=== PATIENT | female | born 1965 | race Caucasian/White ===

== ENCOUNTER 2018-03-25 06:40 | Emergency (ER) | payer MEDICAID, OTHER ==
[~2018-03-25] VITALS: Ht 175.3 cm; Wt 65.0 kg
[~2018-03-25 06:40] MED LIST: BENA25TA5 PO; OMEP20TA39 PO; PERC5TAB12 PO
[2018-03-25 06:44] VITALS: BP 148/75; PULSE 114; RESP 18; TEMP 97.7; O2SAT 100
[2018-03-25] MEDS ORDERED: MORPHINE SULFATE 4 MG/ML INJ IV PUSH ONE (07:15)
--- NOTE | 2018-03-25 07:31 | PD ---
HPI Chief Complaint: Fall Time Seen by Provider: 07:08 Travel History International Travel<30 days: No Contact w/Intl Traveler<30days: No Traveled to known affect area: No History of Present Illness HPI This is a 52-year-old female who presents to the emergency department having tripped over her dog last night landing on the floor. She reports severe right hip pain, constant, worse with movement, improved with rest. She also reports right upper arm pain, and she says she hit her head but she is not sure if she lost consciousness. She has not had any vomiting. She says she drank 4 alcoholic beverages this morning waiting for someone to come pick her head up and take her to the hospital. She drinks every day. PFSH Past Medical History Arthritis: Yes Asthma: Yes Cancer: No Cardiovascular Problems: No COPD: Yes Cerebrovascular Accident: No Diabetes: No Endocrine: No Gastrointestinal Disorders: Yes (DISEASED GALLBLADDER) Genitourinary: Yes Immune Disorder: No Neurologic: Yes Psychiatric: No Reproductive: No Respiratory: Yes Myocardial Infarction: Yes Tetanus Vaccination: < 5 Years Influenza Vaccination: No ?: Not LMP: menapause Menopausal: Yes : 2 Para: 1 Dilation and Curettage (D&C): Yes Past Surgical History Gynecologic Surgery: Yes (d and c) Oral Surgery: Yes (nose surgery) Pacemaker: No Social History Alcohol Use: Yes (daily) Tobacco Use: Yes (3/4 PPD) Substance Use: Yes (MARIJUANA ) Allergies-Medications (Allergen,Severity, Reaction): Coded Allergies: codeine (Unverified Allergy, Unknown, Itching, 03/25/18) Reported Meds & Prescriptions Reported Meds & Active Scripts Active Reported Percocet 5/325 (Oxycodone/Acetaminophen) 5 Mg/325 Mg Tab 1-2 Tab PO Q4H PRN Benadryl (Diphenhydramine HCl) 25 Mg Tab 25 Mg PO DAILY Hm Omeprazole (Omeprazole) 20 Mg Tab 40 Mg PO DAILY Review of Systems Except as stated in HPI: all other systems reviewed are Neg Physical Exam Narrative GENERAL:Well appearing, no acute distress SKIN: Focused skin assessment warm and dry. HEAD: Atraumatic. Normocephalic. EYES: Pupils equal and round. No injection or drainage. ENT: Moist mucous membranes NECK: Trachea midline. No focal cervical spine tenderness. CARDIOVASCULAR: Regular rate and rhythm. No murmur appreciated. 2+ bilateral DP pulses with normal capillary refill. 2+ right radial pulse with normal capillary refill. RESPIRATORY: Clear to auscultation. Breath sounds equal bilaterally. GASTROINTESTINAL: Abdomen soft, non-tender, nondistended. MUSCULOSKELETAL: Severe pain with flexion of the right hip. Tender to palpation over the right proximal humerus. NEUROLOGICAL: Awake and alert. No obvious cranial nerve deficits. Moving all extremities. PSYCHIATRIC: Appropriate mood and affect; insight and judgment normal. Data Data Last Documented VS Vital Signs Date Time Temp Pulse Resp B/P (MAP) Pulse Ox O2 Delivery O2 Flow Rate FiO2 03/25/18 06:44 97.7 114 18 148/75 (99) [address] Brain W/O Iv Contrast(Rout) (03/25/18 ) Complete Blood Count With Diff (03/25/18 07:15) Comprehensive Metabolic Panel (03/25/18 07:15) ^ Insert Iv (03/25/18 07:15) Hip, Uni(Ap&Lat) W Ap Pelvis (03/25/18 ) Humerus (Min 2vws) (03/25/18 ) Morphine Inj (Morphine Inj) (03/25/18 07:15) Ct Hip W/O Contrast (03/25/18 ) Alcohol (Ethanol) (03/25/18 10:02) Labs Laboratory Tests Test 03/25/18 07:30 White Blood Count 6.1 TH/MM3 Red Blood Count 3.37 MIL/MM3 Hemoglobin 10.0 GM/DL Hematocrit 29.1 % Mean Corpuscular Volume 86.4 FL Mean Corpuscular Hemoglobin 29.7 PG Mean Corpuscular Hemoglobin Concent 34.4 % Red Cell Distribution Width 16.7 % Platelet Count 219 TH/MM3 Mean Platelet Volume 8.6 FL Neutrophils (%) (Auto) 63.9 % Lymphocytes (%) (Auto) 24.5 % Monocytes (%) (Auto) 8.2 % Eosinophils (%) (Auto) 2.4 % Basophils (%) (Auto) 1.0 % Neutrophils # (Auto) 3.9 TH/MM3 Lymphocytes # (Auto) 1.5 TH/MM3 Monocytes # (Auto) 0.5 TH/MM3 Eosinophils # (Auto) 0.1 TH/MM3 Basophils # (Auto) 0.1 TH/MM3 CBC Comment DIFF FINAL Differential Comment Blood Urea Nitrogen 3 MG/DL Creatinine 0.56 MG/DL Random Glucose 92 MG/DL Total Protein 7.6 GM/DL Albumin 2.8 GM/DL Calcium Level 8.3 MG/DL Alkaline Phosphatase 205 U/L Aspartate Amino Transf (AST/SGOT) 97 U/L Alanine Aminotransferase (ALT/SGPT) 41 U/L Total Bilirubin 0.3 MG/DL Sodium Level 132 MEQ/L Potassium Level 3.7 MEQ/L Chloride Level 95 MEQ/L Carbon Dioxide Level 25.2 MEQ/L Anion Gap 12 MEQ/L Estimat Glomerular Filtration Rate 113 ML/MIN MDM Medical Decision Making Medical Screen Exam Complete: Yes Emergency Medical Condition: Yes Interpretation(s) Last 24 hours Impressions Lower Extremity CT 03/25/18 0000 Signed Impressions: Service Date/Time: Sunday, March 25, 2018 08:44 - CONCLUSION: 1. The exam demonstrates a comminuted, nondisplaced fracture extending through the base of the right greater trochanter. The femoral neck and femoral head appear intact. Darien Skinner MD Humerus X-Ray 03/25/18 0000 Signed Impressions: Service Date/Time: Sunday, March 25, 2018 07:58 - CONCLUSION: No acute fracture or joint dislocation. Gary Ventura MD Hip and Pelvis X-Ray 03/25/18 0000 Signed Impressions: Service Date/Time: Sunday, March 25, 2018 07:56 - CONCLUSION: No acute bony fracture or joint dislocation. Gary Ventura MD Head CT 03/25/18 0000 Signed Impressions: Service Date/Time: Sunday, March 25, 2018 07:37 - CONCLUSION: Normal examination for a patient of this age. Gary Ventura MD Differential Diagnosis Hip fracture, hip contusion, hip sprain Narrative Course This is a 52-year-old female who presents to the emergency department having fallen earlier this morning. She is an alcoholic. X-ray was negative for acute fracture but CT demonstrates a fracture through the greater trochanter. Fracture is nonoperative. Case was discussed with Dr. Handy who recommended weightbearing and limited abduction. Pt. will be discharged and can follow up with orthopedics as an outpatient. Diagnosis Primary Impression: Greater trochanter fracture Qualified Codes: S72.114A - Nondisplaced fracture of greater trochanter of right femur, initial encounter for closed fracture Referrals: Claribel Handy MD Patient Instructions: General Instructions Additional Instructions: Weightbear as tolerated, limit turning your leg out to the side. Follow up with an orthopedic surgeon as soon as possible. Med/Other Pt SpecificInfo: Prescription(s) given Scripts Hydrocodone-Acetaminophen (Hydrocodone-Acetaminophen) 5-325 mg Tab 1 TAB PO Q6H Y for PAIN, #12 TAB 0 Refills Prov: Belle Arthur MD 03/25/18 Disposition: 01 DISCHARGE HOME Condition: Stable Belle Arthur MD March 25, 2018 07:31
[2018-03-25 07:42] LABS: AUTOMATED NEUTROPHIL # 3.9 TH/MM3 (1.8-7.7); BASOPHIL # 0.1 TH/MM3 (0-0.2); EOSINOPHIL # 0.1 TH/MM3 (0-0.4); EOSINOPHIL % 2.4 % (0.0-4.0); HEMATOCRIT 29.1 % (35.0-46.0); LYMPH % 24.5 % (9.0-44.0); LYMPHOCYTE # 1.5 TH/MM3 (1.0-4.8); MEAN CELL VOLUME 86.4 FL (80.0-100.0); MEAN CORPUSCULAR HEMOGLOBIN 29.7 PG (27.0-34.0); MEAN CORPUSCULAR HGB CONC 34.4 % (32.0-36.0); MEAN PLATELET VOLUME 8.6 FL (7.0-11.0); MONO % 8.2 % (0.0-8.0); MONOCYTE # 0.5 TH/MM3 (0-0.9); NEUT % 63.9 % (16.0-70.0); PLATELET COUNT 219 TH/MM3 (150-450); RED BLOOD COUNT 3.37 MIL/MM3 (4.00-5.30); RED CELL DISTRIBUTION WIDTH 16.7 % (11.6-17.2); WHITE BLOOD COUNT 6.1 TH/MM3 (4.0-11.0)
--- NOTE | 2018-03-25 07:50 | RADRPT ---
EXAM DATE/TIME: 03/25/2018 07:37 [facility] COMPARISON: No previous studies available for comparison. INDICATIONS : Trauma, fall RADIATION DOSE: 56.35 CTDIvol (mGy) MEDICAL HISTORY : Cardiovascular disease. Chronic obstructive pulmonary disease. SURGICAL HISTORY : None. ENCOUNTER: Initial ACUITY: 1 day PAIN SCALE: 7/10 LOCATION: cranial TECHNIQUE: Multiple contiguous axial images were obtained of the head. Using automated exposure control and adj ustment of the mA and/or kV according to patient size, radiation dose was kept as low as reasonably a chievable to obtain optimal diagnostic quality images. DICOM format image data is available electro nically for review and comparison. FINDINGS: CEREBRUM: The ventricles are normal for age. No evidence of midline shift, mass lesion, hemorrhage or acute in farction. No extra-axial fluid collections are seen. POSTERIOR FOSSA: The cerebellum and brainstem are intact. The 4th ventricle is midline. The cerebellopontine angle i s unremarkable. EXTRACRANIAL: The visualized portion of the orbits is intact. SKULL: The calvaria is intact. No evidence of skull fracture. CONCLUSION: Normal examination for a patient of this age. Gary Ventura MD on March 25, 2018 at 7:47 Board Certified Radiologist. This report was verified electronically.
[2018-03-25 08:02] LABS: ALBUMIN 2.8 GM/DL (3.4-5.0); AST (GOT) 97 U/L (15-37); BICARBONATE 25.2 MEQ/L (21.0-32.0); BLOOD UREA NITROGEN 3 MG/DL (7-18); CALCIUM 8.3 MG/DL (8.5-10.1); CHLORIDE 95 MEQ/L (98-107); CREATININE 0.56 MG/DL (0.50-1.00); GLOMERULAR FILTRATION RATE 113 ML/MIN (>89); GLUCOSE,RANDOM 92 MG/DL (74-106); SODIUM (NA) 132 MEQ/L (136-145)
[2018-03-25 08:03] LABS: ALT (GPT) 41 U/L (10-53)
[2018-03-25 08:05] LABS: ALKALINE PHOSPHATASE 205 U/L (45-117); TOTAL BILIRUBIN ADULT 0.3 MG/DL (0.2-1.0); TOTAL PROTEIN 7.6 GM/DL (6.4-8.2)
--- NOTE | 2018-03-25 08:12 | RADRPT ---
EXAM DATE/TIME: 03/25/2018 07:56 [facility] COMPARISON: No previous studies available for comparison. INDICATIONS : Right hip pain after tripping over a dog this morning. MEDICAL HISTORY : None. SURGICAL HISTORY : None. ENCOUNTER: Initial ACUITY: 1 day PAIN SCORE: 7/10 LOCATION: Right hip. FINDINGS: Examination of the right hip was performed with AP Pelvis. The primary and secondary trabecular joseph shira of the femoral neck is intact. The hip joint is of normal width without significant sclerosis or bony hypertrophy. The acetabulum is grossly intact. There is good alignment the SI joints and pubic symphysis. CONCLUSION: No acute bony fracture or joint dislocation. Gary Ventura MD on March 25, 2018 at 8:08 Board Certified Radiologist. This report was verified electronically.
--- NOTE | 2018-03-25 08:13 | RADRPT ---
EXAM DATE/TIME: 03/25/2018 07:58 [facility] COMPARISON: No previous studies available for comparison. INDICATIONS : Right upper arm pain after tripping over a dog this morning. MEDICAL HISTORY : None. SURGICAL HISTORY : None. ENCOUNTER: Initial ACUITY: 1 day PAIN SCORE: 7/10 LOCATION: Right humerus. FINDINGS: Two view examination of the right humerus demonstrates no evidence of fracture or dislocation. Bony mineralization is normal. The soft tissue structures are intact. There is evidence of an old nonunio n fracture involving the distal clavicle. There is good alignment at the a.c. joint. CONCLUSION: No acute fracture or joint dislocation. Gary Ventura MD on March 25, 2018 at 8:10 Board Certified Radiologist. This report was verified electronically.
--- NOTE | 2018-03-25 09:49 | RADRPT ---
EXAM DATE/TIME: 03/25/2018 08:44 [facility] COMPARISON: CT BRAIN W/O CONTRAST, March 25, 2018, 7:37. INDICATIONS : Patient fell, right hip pain RADIATION DOSE: 10.50 CTDIvol (mGy) MEDICAL HISTORY : Chronic obstructive pulmonary disease. SURGICAL HISTORY : None. ENCOUNTER: Initial ACUITY: 1 day PAIN SCALE: 7/10 LOCATION: Right hip TECHNIQUE: Volumetric scanning of the hip was performed. Using automated exposure control and adjustment of the mA and/or kV according to patient size, radiation dose was kept as low as reasonably achievable to o btain optimal diagnostic quality images. DICOM format image data is available electronically for rev iew and comparison. FINDINGS: Thin section imaging through the right hip is provided. This demonstrates a comminuted, nondisplaced fracture which extends through the greater trochanter. The femoral head appears well situated within the acetabular fossa. The femoral neck is intact. The remainder the visualized bony structures of the pelvis are intact. There is no free fluid within the pelvis. There is atherosclerotic plaquing and iliac arteries. Reproducti organs are intact. No il iac or internal adenopathy is seen. CONCLUSION: 1. The exam demonstrates a comminuted, nondisplaced fracture extending through the base of the right greater trochanter. The femoral neck and femoral head appear intact. Darien Skinner MD on March 25, 2018 at 9:39 Board Certified Radiologist. This report was verified electronically.
[2018-03-25] MEDS ORDERED: HYDR-3516 PO (10:44)
[2018-03-25 10:50] VITALS: BP 136/78; PULSE 101; RESP 19; TEMP 97.3; O2SAT 98
--- NOTE | 2018-03-26 09:37 | EKG ---
Date Performed: 03/25/2018 Time Performed: 10:32:24 PTAGE: 52 years EKG: Sinus rhythm POSSIBLE RIGHT VENTRICULAR CONDUCTION DELAY BORDERLINE ECG Since the PREVIOUS TRACING , no significant change noted PREVIOUS TRACING DOCTOR: La Rodriguez Interpretating Date/Time 03/26/2018 09:37:07
== END 2018-03-25 11:07 | disposition home or self-care (01) ==
LOC: NEPC 06:40
DX: S72.114A Nondisplaced fracture of greater trochanter of right femur, initial encounter for closed fracture (principal); F12.90 Cannabis use, unspecified, uncomplicated; F17.200 Nicotine dependence, unspecified, uncomplicated; I25.2 Old myocardial infarction; W01.0XXA Fall on same level from slipping, tripping and stumbling without subsequent striking against object, initial encounter; Z79.899 Other long term (current) drug therapy
CPT/HCPCS: 70450; 73060; 73502; 73700; 80053; 80307; 85025; 93005; 96374; 99285; E0113; J2270

== ENCOUNTER 2018-08-15 07:12 | Inpatient (IN) ==
--- NOTE | 2018-08-15 07:41 | ED ---
HPI General Chief Complaint: Fall Stated Complaint: fall/leg injury(+etoh) Time Seen by Provider: 08/15/18 07:31 Source: patient Mode of arrival: ambulatory Limitations: altered mental status History of Present Illness HPI Narrative: Patient intoxicated and comes in due to slip and fall and injury to the left foreleg. Patient admits to increased ethanol intoxication. No other complaints. MD complaint: Reports fall Related Data Home Medications Medication Instructions Recorded Confirmed omeprazole magnesium [Prilosec OTC] 0 mg PO DAILY 08/15/18 08/15/18 Allergies Allergy/AdvReac Type Severity Reaction Status Date / Time codeine Allergy Unknown Itching Unverified 08/15/18 07:48 Review of Systems ROS: all other systems reviewed are negative [facility] Family History Family History Other Family history of acute myocardial infarction Social History Social History Substance History: Active Abuse Second Hand Smoke Exposure: Yes Smoking Status: Current every day smoker Tobacco Type: Cigarettes How Often Do You Have a Drink Containing Alcohol: 4 or more times a week Recent Travel in [facility] within the Last 8 Weeks: No Recent Out of Country Travel within the Last 8 Weeks: No Exam Narrative Exam Narrative: GENERAL: Alert and oriented Eyes: PERRLA EOMI conjunctiva normal ENT: Moist mucosa SKIN: Focused skin assessment warm/dry. CARDIOVASCULAR: Regular rate and rhythm. No murmur appreciated. RESPIRATORY: No accessory muscle use. Clear to auscultation. Breath sounds equal bilaterally. MUSCULOSKELETAL: No obvious deformities. No clubbing. No cyanosis. No edema. Hematoma with pain on range of motion anterior lateral foreleg overlying proximal fibula. NEUROLOGICAL: Awake and alert. No obvious cranial nerve deficits. Motor grossly within normal limits. Slurring of speech PSYCHIATRIC: Appropriate mood and affect; insight and judgment normal. Course Reevaluation(s) Reevaluation #1: X-rays show comminuted fracture proximal tibia with displacement. Additionally hemoglobin shows significant anemia in need of transfusion. Patient has used aspirin daily and also has dyspepsia intermittently. Black stools for the last 3-4 weeks. Time: 08:36 Initial Documented Vital Signs Temperature 98.2 F 08/15/18 07:31 Pulse Rate 103 H 08/15/18 07:31 Blood Pressure 91/67 L 08/15/18 07:31 Pulse Oximetry 97 08/15/18 07:31 Last Documented Vital Signs Temperature 98.2 F 08/15/18 16:00 Pulse Rate 100 H 08/15/18 18:00 Respiratory Rate 18 08/15/18 18:00 Blood Pressure 164/88 H 08/15/18 18:00 Pulse Oximetry 97 08/15/18 18:00 Medical Decision Making MDM Narrative Medical Screen Exam Complete: Yes Emergency Medical Condition: Yes Lab Data Result diagrams: 08/15/18 08:10 08/15/18 08:10 Lab Results 08/15/18 08/15/18 08/15/18 Range/Units 08:10 08:10 08:10 CBC w Diff Slide review pending WBC 8.9 (4.0-11.0) th/mm3 RBC 2.49 L (4.00-5.30) mil/mm3 Hgb 5.8 L* (11.6-15.3) gm/dL Hct 18.0 L* (35.0-46.0) % MCV 72.2 L (80.0-100.0) fL MCH 23.3 L (27.0-34.0) pg MCHC 32.3 (32.0-36.0) % RDW 17.9 H (11.6-17.2) % Plt Count 231 (150-450) th/mm3 MPV 8.7 (7.0-11.0) fL Neut % (Auto) 79.1 H (16.0-70.0) % Lymph % (Auto) 12.6 (9.0-44.0) % Beckham % (Auto) 4.2 (0.0-8.0) % Eos % (Auto) 3.6 (0.0-4.0) % Baso % (Auto) 0.5 (0.0-2.0) % Neut # (Auto) 7.1 (1.8-7.7) th/mm3 Lymph # (Auto) 1.1 (1.0-4.8) th/mm3 Beckham # (Auto) 0.4 (0.0-0.9) th/mm3 Eos # (Auto) 0.3 (0.0-0.4) th/mm3 Baso # (Auto) 0.0 (0.0-0.2) th/mm3 WBC Differential . Diff Scan Auto diff confirmed Differential Comment . Target Cells 1+ H (None) PT (9.8-11.6) sec INR Ratio APTT (24.3-30.1) sec Sodium 131 L (136-145) meq/L Potassium 3.6 (3.5-5.1) meq/L Chloride 100 (98-107) meq/L Carbon Dioxide 16.9 L (21.0-32.0) meq/L Anion Gap 14 (5-15) meq/L BUN 5 L (7-18) mg/dL Creatinine 0.73 (0.50-1.00) mg/dL Estimated GFR 83 L (>89) mL/min Random Glucose 104 (74-106) mg/dL Calcium 7.9 L (8.5-10.1) mg/dL Iron 13 L (50-170) mcg/dL TIBC 543 H (250-450) mcg/dL % Saturation 2.4 L (20-50) % Ferritin 5 L (8-252) ng/mL Total Bilirubin 0.2 (0.2-1.0) mg/dL AST 62 H (15-37) U/L ALT 20 (10-53) U/L Alkaline Phosphatase 137 H (45-117) U/L Total Protein 8.0 (6.4-8.2) g/dL Albumin 3.0 L (3.4-5.0) g/dL Lipase 217 (73-393) U/L Serum Alcohol 277 H (0-5) mg/dL Blood Type Antibody Screen MTS Gel Crossmatch Bld Prod Order Comment 08/15/18 08/15/18 Range/Units 09:04 09:04 CBC w Diff WBC (4.0-11.0) th/mm3 RBC (4.00-5.30) mil/mm3 Hgb (11.6-15.3) gm/dL Hct (35.0-46.0) % MCV (80.0-100.0) fL MCH (27.0-34.0) pg MCHC (32.0-36.0) % RDW (11.6-17.2) % Plt Count (150-450) th/mm3 MPV (7.0-11.0) fL Neut % (Auto) (16.0-70.0) % Lymph % (Auto) (9.0-44.0) % Beckham % (Auto) (0.0-8.0) % Eos % (Auto) (0.0-4.0) % Baso % (Auto) (0.0-2.0) % Neut # (Auto) (1.8-7.7) th/mm3 Lymph # (Auto) (1.0-4.8) th/mm3 Beckham # (Auto) (0.0-0.9) th/mm3 Eos # (Auto) (0.0-0.4) th/mm3 Baso # (Auto) (0.0-0.2) th/mm3 WBC Differential Diff Scan Differential Comment Target Cells (None) PT 11.4 (9.8-11.6) sec INR 1.1 Ratio APTT 27.1 (24.3-30.1) sec Sodium (136-145) meq/L Potassium (3.5-5.1) meq/L Chloride (98-107) meq/L Carbon Dioxide (21.0-32.0) meq/L Anion Gap (5-15) meq/L BUN (7-18) mg/dL Creatinine (0.50-1.00) mg/dL Estimated GFR (>89) mL/min Random Glucose (74-106) mg/dL Calcium (8.5-10.1) mg/dL Iron (50-170) mcg/dL TIBC (250-450) mcg/dL % Saturation (20-50) % Ferritin (8-252) ng/mL Total Bilirubin (0.2-1.0) mg/dL AST (15-37) U/L ALT (10-53) U/L Alkaline Phosphatase (45-117) U/L Total Protein (6.4-8.2) g/dL Albumin (3.4-5.0) g/dL Lipase (73-393) U/L Serum Alcohol (0-5) mg/dL Blood Type O Positive Antibody Screen Negative MTS Gel Crossmatch See Detail Bld Prod Order Comment Imaging Data Radiologist's impression: Tibia/Fibula X-Ray 08/15/18 07:41 CONCLUSION: 1. Acute displaced comminuted fractures involving left proximal tibia which extends to the articular surface as well as the proximal fibula. Fat-fluid level within the suprapatellar bursa. 2. Diffuse osteoporosis of the left tibia, fibula and visualized portion of the distal femur. Chest X-Ray 08/15/18 08:38 CONCLUSION: Negative examination. Lower Extremity CT 08/15/18 12:11 CONCLUSION: 1. Acute comminuted mildly displaced fractures involving the proximal tibia and fibula are noted. The proximal tibial fracture extends to the articular surface in the region of the intercondylar eminence. 2. Moderate-sized suprapatellar knee joint effusion which contains a fat-fluid level. 3. Diffuse osteoporosis involving the bones of the lower leg is noted. Knee CT 08/15/18 12:16 CONCLUSION: 1. Evidence of an acute displaced comminuted fracture involving the left proximal tibial shaft which extends superiorly into the region of the intercondylar tubercle and involves the articular surface. There is also an acute comminuted fracture involving the proximal fibula. 2. Moderate-sized suprapatellar effusion demonstrates a fat-fluid level. 3. Underlying diffuse osteoporosis involving the distal femur, patella, proximal tibia and proximal fibula is noted. Discharge Plan Discharge Disposition Patient Disposition: 02 Transfer To [facility] Physicians Team ED Provider: Mihir Lamb Primary Care Provider: Primary Care Esperanza Kiran Attending Provider: Curtis Jamison Other Providers: Naima Bernard Christophe J Status ED Status: Admitted Patient
[2018-08-15] MEDS ORDERED: Ketorolac Inj 30 MG/ML (IVP) Vial IV.PUSH ONE (07:45)
--- NOTE | 2018-08-15 08:15 | XR ---
EXAM DATE: 08/15/2018 7:41 AM EDT AGE/SEX: 52 years / Female INDICATIONS: Left proximal tibia pain, swelling, and bruising after twisting leg. CLINICAL DATA: This is the patient's initial encounter. Patient reports that signs and symptoms have been present for 1 day and indicates a pain score of 10/10. MEDICAL/SURGICAL HISTORY: None. None. COMPARISON: No prior exams available for comparison. FINDINGS: There is an acute displaced comminuted fracture involving the left proximal tibia which extends to th e articular surface. There is also an acute comminuted displaced fracture involving the left proximal fibula. There is a fat-fluid level within the suprapatellar bursa. Diffuse osteoporosis of the left tibia, fibula and visualized portion of the distal femur is noted. CONCLUSION: 1. Acute displaced comminuted fractures involving left proximal tibia which extends to the articular surface as well as the proximal fibula. Fat-fluid level within the suprapatellar bursa. 2. Diffuse osteoporosis of the left tibia, fibula and visualized portion of the distal femur. Electronically signed by: Emory Guerrero MD 08/15/2018 8:14 AM EDT
[2018-08-15 08:26] LABS: Baso % (Auto) 0.5 % (0.0-2.0); Eos # (Auto) 0.3 th/mm3 (0.0-0.4); Eos % (Auto) 3.6 % (0.0-4.0); Lymph # (Auto) 1.1 th/mm3 (1.0-4.8); Lymph % (Auto) 12.6 % (9.0-44.0); Mean Corpuscular HGB Conc 32.3 % (32.0-36.0); Mean Corpuscular Hemoglobin 23.3 pg (27.0-34.0); Mean Corpuscular Volume 72.2 fL (80.0-100.0); Mean Platelet Volume 8.7 fL (7.0-11.0); Mono # (Auto) 0.4 th/mm3 (0.0-0.9); Mono % (Auto) 4.2 % (0.0-8.0); Neut # (Auto) 7.1 th/mm3 (1.8-7.7); Neut % (Auto) 79.1 % (16.0-70.0); Platelet Count 231 th/mm3 (150-450); Red Blood Count 2.49 mil/mm3 (4.00-5.30); Red Cell Distribution Width 17.9 % (11.6-17.2); White Blood Count 8.9 th/mm3 (4.0-11.0)
[2018-08-15 08:28] LABS: Hemoglobin 5.8 gm/dL (11.6-15.3)
[2018-08-15 08:29] LABS: Chloride 100 meq/L (98-107); Potassium 3.6 meq/L (3.5-5.1); Sodium 131 meq/L (136-145)
[2018-08-15 08:32] LABS: Calcium 7.9 mg/dL (8.5-10.1)
[2018-08-15 08:33] LABS: Anion Gap 14 meq/L (5-15); Blood Urea Nitrogen 5 mg/dL (7-18); Carbon Dioxide 16.9 meq/L (21.0-32.0); Glucose,Random 104 mg/dL (74-106)
[2018-08-15 08:36] LABS: Alanine Aminotransferase 20 U/L (10-53); Aspartate Aminotransferase 62 U/L (15-37); Glomerular Filtration Rate 83 mL/min (>89)
[2018-08-15 08:39] LABS: Alkaline Phosphatase 137 U/L (45-117)
[2018-08-15 08:41] LABS: Alcohol 277 mg/dL (0-5)
[2018-08-15 09:04] LABS: Target Cells 1+
--- NOTE | 2018-08-15 09:09 | XR ---
EXAM DATE: 08/15/2018 8:38 AM EDT AGE/SEX: 52 years / Female INDICATIONS: Shortness of breath. CLINICAL DATA: This is the patient's initial encounter. Patient reports that signs and symptoms have been present for 1 day and indicates a pain score of 0/10. MEDICAL/SURGICAL HISTORY: None. None. COMPARISON: No prior exams available for comparison. FINDINGS: A single AP view of the chest demonstrates the lungs to be symmetrically aerated without evidence of mass, infiltrate or effusion. The cardiomediastinal contours are unremarkable. Osseous structures a re intact. CONCLUSION: Negative examination. Electronically signed by: Emory Guerrero MD 08/15/2018 9:08 AM EDT
[2018-08-15] MEDS: Sod Chloride 0.9% Inj 1,000 ML IV.CONT SCH ×2 (09:16→22:59)
[2018-08-15 09:29] LABS: Activated Partial Thrombo Time 27.1 sec (24.3-30.1); INR 1.1 Ratio; Prothrombin Time 11.4 sec (9.8-11.6)
[2018-08-15] MEDS ORDERED: Haloperidol Inj 5 MG/ML Ampul IV.PUSH PRN ×2 (09:56→10:13)
[2018-08-15] MEDS ORDERED: LORazepam 1 MG Tablet PO PRN (09:56)
[2018-08-15] MEDS ORDERED: Acetaminophen 325 MG Tablet PO PRN ×2 (10:01→11:06)
[2018-08-15] MEDS ORDERED: Bisacodyl 10 MG Supp RECTAL PRN (10:01)
[2018-08-15] MEDS: Pantoprazole Inj 40 MG Vial IV.PUSH SCH (10:38)
[2018-08-15] MEDS ORDERED: Naloxone Inj 0.4 MG/ML Vial IV.PUSH PRN (11:06)
[2018-08-15] MEDS ORDERED: HYDROmorphone PF Inj 1 MG/ML Ampul IV.PUSH PRN ×3 (11:06)
--- NOTE | 2018-08-15 11:21 | P.HP ---
History of Present Illness Primary Care Physician: No Primary Care Physician Chief Complaint: Left leg pain History of Present Illness: This is a 52-year-old female with a history of alcohol abuse, asthma and chronic right hip pain. Patient presents to the emergency department because of acute left leg pain. States she was standing using her cane when she lost her balance and fell. She immediately noticed deformity of her left leg and complained of severe pain "hurts like hell" especially with movement. Tib-fib x -ray independently reviewed by me shows acute displaced comminuted fracture involving the left proximal tibia. Per ER physician, orthopedic surgery recommends transfer to [facility] and obtain lower extremity CT. Patient also has a hematoma in the anterior lateral foreleg. Patient states he cannot tolerate pain medications including Lortab. Morphine gives her dizziness. She denies any symptoms immediately prior to the fall however she has been having intermittent dizziness for the past several weeks. She also noted dark stools and dyspepsia with Prilosec. She also has chronic headaches for which she takes aspirin. She has been evaluated twice in the past including head CT. EKG tracing independently reviewed by me showing sinus tachycardia with poor R wave progression. Chest x-ray image with no acute cardiopulmonary disease. All other systems reviewed negative Review of Systems All other systems reviewed negative except as stated in HPI PMFSH - History History Provided By: Patient - Medical History Medical History: Medical History (Last Reviewed 08/15/18 @ 11:15 by Curtis Jamison MD) Asthma ETOH abuse FH: cholecystectomy FH: heart attack Head trauma Hip fracture - Family History Family History: Family History (Last Updated 08/15/18 @ 11:16 by Curtis Jamison MD) Other Family history of acute myocardial infarction - Tobacco History Second Hand Smoke Exposure: Yes Tobacco Use In Past 30 Days: Yes Smoking Status: Current every day smoker Tobacco Type: Cigarettes - Alcohol History How Often Do You Have a Drink Containing Alcohol: 4 or more times a week - Substance Use History Substance History: Active Abuse - Substance Use Type Marijuana Status: Active Frequency: occ Alcohol Status: Active Frequency: daily - Travel History Recent Travel in the [facility] Within the Last 8 Weeks: No Recent Travel Out of the Country Within the Last 8 Weeks: No - Immunization History Tetanus Immunization: <5 Years Hx Influenza Vaccine This Season: No Medications and Allergies Active Medications: Active Medications Acetaminophen (Tylenol) 650 mg PO Q4H PRN PRN Reason: Temp > 100.4 Acetaminophen (Tylenol) 650 mg PO Q6HR PRN PRN Reason: PAIN SCALE 1 TO 2 Hydrocodone Bitart/Acetaminophen ([place] 10/325) 1 tab PO Q4H PRN PRN Reason: PAIN SCALE 6 TO 10 Hydrocodone Bitart/Acetaminophen ([place] 5/325) 1 tab PO Q4H PRN PRN Reason: PAIN SCALE 3 TO 5 Al Hydroxide/Mg Hydroxide (Milk Of Magnesia Liq) 30 ml PO Q12H PRN PRN Reason: Mild Constipation Bisacodyl (Dulcolax Supp) 10 mg RECTAL DAILY PRN PRN Reason: SEVERE CONSITIPATION Flumazenil (Romazecon Inj) 0.2 mg IV.PUSH Q1M PRN PRN Reason: OVERSEDATION Folic Acid (Folic Acid) 1 mg PO DAILY [facility] Stop: 08/21/18 08:59 Haloperidol Lactate (Haldol Inj) 1 mg IV.PUSH Q15M PRN PRN Reason: for severe agitation Hydromorphone HCl (Dilaudid Pf Inj) 0.5 mg IV.PUSH Q3H PRN PRN Reason: PAIN 3-5; IF UABLE TO TAKE PO Hydromorphone HCl (Dilaudid Pf Inj) 1 mg IV.PUSH Q3H PRN PRN Reason: BREAKTHROUGH PAIN Hydromorphone HCl (Dilaudid Pf Inj) 1 mg IV.PUSH Q3H PRN PRN Reason: PAIN 6-10;IF UNABLE TO TAKE PO Sodium Chloride (Ns Inj) 1,000 mls @ 125 mls/hr IV.CONT .Q8H [facility] Last Admin: 08/15/18 09:16 Dose: 125 mls/hr Lactulose (Lactulose Liq) 30 ml PO DAILY PRN PRN Reason: SEVERE CONSITIPATION Lorazepam (Ativan) 1 mg PO Q4H PRN PRN Reason: for CIWA 8-10 Lorazepam (Ativan) 2 mg PO Q2H PRN PRN Reason: for CIWA 11-14 Lorazepam (Ativan Inj) 2 mg IV.PUSH Q2H PRN PRN Reason: for CIWA 11-14 Lorazepam (Ativan Inj) 2 mg IV.PUSH Q1H PRN PRN Reason: for CIWA 15-20 Lorazepam (Ativan Inj) 2 mg IV.PUSH Q15M PRN PRN Reason: for CIWA > 20 Lorazepam (Ativan Inj) 1 mg IV.PUSH Q4H PRN PRN Reason: for CIWA 8-10 Multivitamins/Minerals (Theragran-M) 1 tab PO DAILY [facility] Stop: 08/21/18 08:59 Naloxone HCl (Narcan Inj) 0.4 mg IV.PUSH UNSCH PRN PRN Reason: SEE LABEL COMMENTS Ondansetron HCl (Zofran Inj) 4 mg IV.PUSH Q6H PRN PRN Reason: NAUSEA OR VOMITING Pantoprazole Sodium (Protonix Inj) 40 mg IV.PUSH Q24H [facility] Last Admin: 08/15/18 10:38 Dose: 40 mg Senna/Docusate Sodium (Sophie-Colace) 1 tab PO BID [facility] Sennosides (Senokot) 17.2 mg PO Q12H PRN PRN Reason: Moderate Constipation Sodium Chloride (Ns Flush) 2 ml IV.FLUSH PRN PRN PRN Reason: FLUSH AFTER USING IV ACCESS Thiamine HCl (Vitamin B1) 100 mg PO DAILY [facility] Allergies Allergy/AdvReac Type Severity Reaction Status Date / Time codeine Allergy Unknown Itching Unverified 08/15/18 07:48 Home Medications Medication Instructions Recorded Confirmed Type omeprazole magnesium [Prilosec OTC] 0 mg PO DAILY 08/15/18 08/15/18 History Exam Vital signs: Vital Signs 08/15/18 07:31 08/15/18 08:18 08/15/18 08:39 Temperature 98.2 F Pulse Rate 103 H 102 H 104 H Respiratory Rate 18 Blood Pressure 91/67 L 135/80 Pulse Oximetry 97 97 100 08/15/18 09:19 08/15/18 09:20 08/15/18 10:39 Temperature Pulse Rate 105 H 86 Respiratory Rate 16 16 18 Blood Pressure 136/76 138/75 Pulse Oximetry 100 97 Intake & Output 08/14/18 08/15/18 08/15/18 18:59 06:59 18:59 Weight 66 kg Narrative: GENERAL: Well-developed, well-nourished in no distress SKIN: Warm and dry. Facial hemangioma HEAD: Atraumatic. Normocephalic. EYES: Pupils equal and round. No scleral icterus. No injection or drainage. ENT: No nasal bleeding or discharge. Mucous membranes pink and moist. NECK: Trachea midline. No JVD. CARDIOVASCULAR: Regular rate and rhythm. RESPIRATORY: No accessory muscle use. Clear to auscultation. Breath sounds equal bilaterally. GASTROINTESTINAL: Abdomen soft, non-tender, nondistended. MUSCULOSKELETAL: Extremities without clubbing, cyanosis, or edema. Left lower extremity in a splint. Positive pedal pulses. Per ER physician, patient has a hematoma in the anterolateral foreleg NEUROLOGICAL: Awake and alert. No obvious cranial nerve deficits. Motor grossly within normal limits. Five out of 5 muscle strength in the arms and legs. Normal speech. PSYCHIATRIC: Appropriate mood and affect; insight and judgment normal. Results - Labs CBC & Chem 7: 08/15/18 08:10 08/15/18 08:10 Labs: Laboratory Results - last 24 hr 08/15/18 08/15/18 08/15/18 08:10 08:10 09:04 CBC w Diff Slide review pending WBC 8.9 RBC 2.49 L Hgb 5.8 L* Hct 18.0 L* MCV 72.2 L MCH 23.3 L MCHC 32.3 RDW 17.9 H Plt Count 231 MPV 8.7 Neut % (Auto) 79.1 H Lymph % (Auto) 12.6 [place] % (Auto) 4.2 Eos % (Auto) 3.6 Baso % (Auto) 0.5 Neut # (Auto) 7.1 Lymph # (Auto) 1.1 [place] # (Auto) 0.4 Eos # (Auto) 0.3 Baso # (Auto) 0.0 WBC Differential . Diff Scan Auto diff confirmed Differential Comment . Target Cells 1+ H PT INR APTT Sodium 131 L Potassium 3.6 Chloride 100 Carbon Dioxide 16.9 L Anion Gap 14 BUN 5 L Creatinine 0.73 Estimated GFR 83 L Random Glucose 104 Calcium 7.9 L Total Bilirubin 0.2 AST 62 H ALT 20 Alkaline Phosphatase 137 H Total Protein 8.0 Albumin 3.0 L Serum Alcohol 277 H Blood Type O Positive Antibody Screen Negative MTS Gel Crossmatch See Detail Bld Prod Order Comment 08/15/18 09:04 CBC w Diff WBC RBC Hgb Hct MCV MCH MCHC RDW Plt Count MPV Neut % (Auto) Lymph % (Auto) [place] % (Auto) Eos % (Auto) Baso % (Auto) Neut # (Auto) Lymph # (Auto) [place] # (Auto) Eos # (Auto) Baso # (Auto) WBC Differential Diff Scan Differential Comment Target Cells PT 11.4 INR 1.1 APTT 27.1 Sodium Potassium Chloride Carbon Dioxide Anion Gap BUN Creatinine Estimated GFR Random Glucose Calcium Total Bilirubin AST ALT Alkaline Phosphatase Total Protein Albumin Serum Alcohol Blood Type Antibody Screen MTS Gel Crossmatch Bld Prod Order Comment - Imaging Impressions Tibia/Fibula X-Ray 08/15/18 07:41 CONCLUSION: 1. Acute displaced comminuted fractures involving left proximal tibia which extends to the articular surface as well as the proximal fibula. Fat-fluid level within the suprapatellar bursa. 2. Diffuse osteoporosis of the left tibia, fibula and visualized portion of the distal femur. Chest X-Ray 08/15/18 08:38 CONCLUSION: Negative examination. Caprini VTE Risk Assessment Caprini VTE Risk Assessment: Moderate/High Risk (score >= 2) Caprini Risk Assessment Model: Point Value = 1 Point Value = 2 Point Value = 3 Point Value = 5 Age 41-60 Minor surgery BMI > 25 kg/m2 Swollen legs Varicose veins or History of unexplained or recurrent spontaneous Oral contraceptives or hormone replacement Sepsis (< 1 month) Serious lung disease, including pneumonia (< 1 month) Abnormal pulmonary function Acute myocardial infarction Congestive heart failure (< 1 month) History of inflammatory bowel disease Medical patient at bed rest Age 61-74 Arthroscopic surgery Major open surgery (> 45 min) Laparoscopic surgery (> 45 min) Malignancy Confined to bed (> 72 hours) Immobilizing plaster cast Central venous access Age >= 75 History of VTE Family history of VTE Factor V Leiden Prothrombin [id number] Lupus anticoagulant Anticardiolipin antibodies Elevated serum homocysteine Heparin-induced thrombocytopenia Other congenital or acquired thrombophilia Stroke (< 1 month) Elective arthroplasty Hip, pelvis, or leg fracture Acute spinal cord injury (< 1 month) Prophylaxis Regimen: Total Risk Factor Score Risk Level Prophylaxis Regimen 0-1 Low Early ambulation 2 Moderate Order ONE of the following: *Sequential Compression Device (SCD) *Heparin 5000 units SQ BID 3-4 Higher Order ONE of the following medications: *Heparin 5000 units SQ TID *Enoxaparin/Lovenox 40 mg SQ daily (WT < 150 kg, CrCl > 30 mL/min) *Enoxaparin/Lovenox 30 mg SQ daily (WT < 150 kg, CrCl > 10-29 mL/min) *Enoxaparin/Lovenox 30 mg SQ BID (WT < 150 kg, CrCl > 30 mL/min) AND/OR *Sequential Compression Device (SCD) 5 or more Highest Order ONE of the following medications: *Heparin 5000 units SQ TID (Preferred with Epidurals) *Enoxaparin/Lovenox 40 mg SQ daily (WT < 150 kg, CrCl > 30 mL/min) *Enoxaparin/Lovenox 30 mg SQ daily (WT < 150 kg, CrCl > 10-29 mL/min) *Enoxaparin/Lovenox 30 mg SQ BID (WT < 150 kg, CrCl > 30 mL/min) AND *Sequential Compression Device (SCD) Assessment and Plan - Plan This is a 52-year-old female with a history of alcohol abuse, asthma and chronic right hip pain. Patient presents to the emergency department because of acute left leg pain s/p fall. Tib-fib x-ray shows acute displaced comminuted fracture involving the left proximal tibia. Acute displaced comminuted left tibial fracture s/p fall. Patient also has a hematoma in the anterolateral leg. Patient needs definitive repair keep n.p.o. and transfer to main hospital per orthopedic surgery. Obtain lower extremity CT. Pain management with Lortab and IV Dilaudid counseled regarding narcotics Microcytic anemia suspect GI bleed. Hemoccult stools. Obtain iron studies. Patient to receive 2 units of packed RBC keep hemoglobin at least 8. Consult GI. Continue PPI Alcohol abuse with elevated AST counseled. WA protocol Hyponatremia, mild. Monitor DVT prophylaxis with SCD. Pharmacological prophylaxis when cleared by orthopedic surgery and gastroenterology
[2018-08-15 12:01] LABS: % Iron Saturation 2.4 % (20-50)
--- NOTE | 2018-08-15 13:12 | CT ---
EXAM DATE: 08/15/2018 12:25 PM EDT AGE/SEX: 52 years / Female INDICATIONS: Trauma. Fall. Left low leg and knee pain. Evaluate fractures. CLINICAL DATA: This is the patient's initial encounter. Patient reports that signs and symptoms have been present for 1 day and indicates a pain score of 7/10. MEDICAL/SURGICAL HISTORY: Asthma. None. RADIATION DOSE: 6.59 CTDI (mGy) ; Combined studies COMPARISON: [facility], CT TIB/FIB LEFT W/O CONTRAST, 08/15/2018. . TECHNIQUE: Multiple contiguous axial images were acquired using a multirow detector CT scanner witho ut contrast. Multiplanar reconstruction was performed in the sagittal and coronal planes. Using aut omated exposure control and adjustment of the mA and/or kV according to patient size, radiation dose was kept as low as reasonably achievable to obtain optimal diagnostic quality images. DICOM format i mage data is available electronically for review and comparison. FINDINGS: There is evidence of an acute displaced comminuted fracture involving the left proximal tibial shaft which extends superiorly into the region of the intercondylar tubercle and involves the articular krystle face. There is also an acute comminuted fracture involving the proximal fibula. A moderate-sized supr apatellar effusion demonstrates a fat-fluid level. Underlying diffuse osteoporosis involving the dist al femur, patella, proximal tibia and proximal fibula is noted. CONCLUSION: 1. Evidence of an acute displaced comminuted fracture involving the left proximal tibial shaft which extends superiorly into the region of the intercondylar tubercle and involves the articular surface. There is also an acute comminuted fracture involving the proximal fibula. 2. Moderate-sized suprapatellar effusion demonstrates a fat-fluid level. 3. Underlying diffuse osteoporosis involving the distal femur, patella, proximal tibia and proximal fibula is noted. Electronically signed by: Emory Guerrero MD 08/15/2018 1:11 PM EDT
--- NOTE | 2018-08-15 13:14 | CT ---
EXAM DATE: 08/15/2018 12:25 PM EDT AGE/SEX: 52 years / Female INDICATIONS: Trauma. Fall. Left low leg and knee pain. Evaluate fractures. CLINICAL DATA: This is the patient's initial encounter. Patient reports that signs and symptoms have been present for 1 day and indicates a pain score of 6/10. MEDICAL/SURGICAL HISTORY: Asthma. None. RADIATION DOSE: 6.59 CTDI (mGy) ; Combined studies COMPARISON: [facility], CT KNEE LEFT W/O CONTRAST, 08/15/2018. . TECHNIQUE: Multiple contiguous axial images were acquired using a multirow detector CT scanner witho ut contrast. Multiplanar reconstruction was performed in the sagittal and coronal planes. Using aut omated exposure control and adjustment of the mA and/or kV according to patient size, radiation dose was kept as low as reasonably achievable to obtain optimal diagnostic quality images. DICOM format i mage data is available electronically for review and comparison. FINDINGS: Acute comminuted mildly displaced fractures involving the proximal tibia and fibula are noted. The pr oximal tibial fracture extends to the articular surface in the region of the intercondylar eminence. There is a moderate-sized suprapatellar knee joint effusion which contains a fat-fluid level. Diffuse osteoporosis involving the bones of the lower leg is noted. CONCLUSION: 1. Acute comminuted mildly displaced fractures involving the proximal tibia and fibula are noted. Th e proximal tibial fracture extends to the articular surface in the region of the intercondylar eminen ce. 2. Moderate-sized suprapatellar knee joint effusion which contains a fat-fluid level. 3. Diffuse osteoporosis involving the bones of the lower leg is noted. Electronically signed by: Emory Guerrero MD 08/15/2018 1:13 PM EDT
--- NOTE | 2018-08-15 20:22 | MB ---
cc: Naima Bernard MD DATE: 08/15/2018 REFERRING PHYSICIAN: Curtis aJmison MD REASON FOR CONSULTATION: Anemia, iron deficiency. HISTORY OF PRESENT ILLNESS: Mrs. Lemus is a 52-year-old lady with history of asthma, alcohol abuse, chronic hip pain, came to the emergency room with acute left leg pain. She states she was standing using her cane when she lost her balance and fell. Immediately noticed deformity of her left leg and complains of severe pain. She came to the emergency room for further evaluation and treatment. She was noted to be severely anemic. She denies any melena, hematemesis, or hematochezia, dysphagia, odynophagia or any kind of bleeding from any other source. The patient stated she was taking NSAIDs on a regular basis due to back pain. She also reports using alcohol. She had an endoscopy and colonoscopy 5 years ago according to her, was negative. According to her, she did have some dizziness for the past several weeks. She did have dyspepsia for which she was taking Prilosec. She states she may have had some black stools a few days back, but nothing recently. PAST MEDICAL HISTORY: Asthma, alcohol abuse. PAST SURGICAL HISTORY: Hip fracture. FAMILY HISTORY: No family history of colon cancer or any other GI pathology. SOCIAL HISTORY: She does smoke cigarettes. Drinks 4-5 beers a week. Denies any drug use other than marijuana, which according to her is occasional. ALLERGIES: CODEINE. MEDICATIONS: 1. Tylenol. 2. Hydrocodone. 3. Romazicon. 4. Folic acid. 5. Haloperidol. 6. Lactulose. 7. Multivitamin. 8. Protonix. 9. Senokot. 10. Thiamine. 11. At home, she is taking Prilosec. REVIEW OF SYSTEMS: GENERAL: She denies any fever, chills, weight loss or weight gain. ENT: No alteration in baseline hearing or visual activity. PULMONARY: Denies any chest pain, shortness of breath. GASTROINTESTINAL: As above. GENITOURINARY: Denies dysuria or hematuria. HEMATOLOGICAL: Denies any history of previous anemia or bleeding disorder. SKIN: No alteration of baseline skin lesion. NEUROLOGIC: No history of TIA or CVA kind of symptoms. PHYSICAL EXAMINATION: GENERAL: She is sitting comfortable in bed, in no acute distress. VITAL SIGNS: Blood pressure is 136/76, respirations 16. HEENT: PERRLA. NECK: No JVD. No lymphadenopathy. FACE: She has facial hemangioma. CHEST: Clear to auscultation and palpation. CARDIOVASCULAR: S1, S2. No murmur. ABDOMEN: Soft, nontender. Bowel sounds are present. CENTRAL NERVOUS SYSTEM: Awake, alert, oriented x3. No focal signs identified. EXTREMITIES: She has a left lower extremity splint. DATA: Her hemoglobin on admission was 5.8, platelets 231. White count 8.1, potassium 4.6, glucose 104. She had lower extremity CT, which was suggestive of acute comminuted mildly displaced fracture involving the proximal tibia and fibula. Suprapatellar knee joint effusion, diffuse osteoporosis involving the lower leg. IMPRESSION: Mrs. Lemus is a 52-year-old lady, admitted to the hospital with left lower leg fracture secondary to a fall, found to have iron deficiency anemia. She is hemodynamically stable at this time. No active bleed. History of alcohol and NSAID use, possible peptic ulcer disease, telangiectasias, portal hypertension. No indication of active bleed at this time. RECOMMENDATIONS: Clear liquid diet. Inform GI when the patient transferred to the main hospital, EGD, colonoscopy once clinically stable and after the orthopedic surgery. Transfuse p.r.n. to keep hemoglobin more than 8. Protonix drip. Avoid NSAIDs. If active bleeding will consider endoscopy on an emergency basis. I would like to thank Dr. Jamison for referring her to our office for consultation. MD NELDA HuertaB/ct/ll , 07:27 PM , 07:39 PM
[2018-08-15] MEDS ORDERED: HYDROmorphone PF Inj 2 MG/ML Vial IV.PUSH PRN ×2 (20:37→20:52)
[2018-08-15] MEDS: Senna/Docusate Sodium 8.6/50 MG Tablet PO SCH (22:58)
[2018-08-15] MEDS: HYDROmorphone PF Inj 2 MG/ML Vial IV.PUSH PRN (22:59)
[2018-08-16] MEDS: Sod Chloride 0.9% Inj 1,000 ML IV.CONT SCH ×4 (01:41→17:28)
[2018-08-16 03:41] LABS: Hematocrit 25.6 % (35.0-46.0); Hemoglobin 8.6 gm/dL (11.6-15.3)
[2018-08-16] MEDS ORDERED: Sodium Chlor 0.9% Inj 500 ML IV.CONT ONE (03:45)
[2018-08-16] MEDS ORDERED: Chlorhexidine Gluconate 2% 1 Pack (2 Cloths) TOPICAL ONE (03:45)
[2018-08-16] MEDS: HYDROmorphone PF Inj 2 MG/ML Vial IV.PUSH PRN (04:13)
[2018-08-16 05:31] LABS: Baso % (Auto) 0.8 % (0.0-2.0); Eos # (Auto) 0.1 th/mm3 (0.0-0.4); Hematocrit 26.2 % (35.0-46.0); Hemoglobin 8.6 gm/dL (11.6-15.3); Lymph # (Auto) 0.5 th/mm3 (1.0-4.8); Lymph % (Auto) 8.1 % (9.0-44.0); Mean Corpuscular HGB Conc 32.9 % (32.0-36.0); Mean Corpuscular Hemoglobin 25.1 pg (27.0-34.0); Mean Corpuscular Volume 76.3 fL (80.0-100.0); Mean Platelet Volume 8.1 fL (7.0-11.0); Mono # (Auto) 0.5 th/mm3 (0.0-0.9); Mono % (Auto) 8.7 % (0.0-8.0); Neut # (Auto) 5.1 th/mm3 (1.8-7.7); Neut % (Auto) 80.4 % (16.0-70.0); Platelet Count 164 th/mm3 (150-450); Red Blood Count 3.43 mil/mm3 (4.00-5.30); Red Cell Distribution Width 19.1 % (11.6-17.2); White Blood Count 6.3 th/mm3 (4.0-11.0)
[2018-08-16 05:50] LABS: Anion Gap 13 meq/L (5-15); Blood Urea Nitrogen 6 mg/dL (7-18); Calcium 8.2 mg/dL (8.5-10.1); Carbon Dioxide 20.3 meq/L (21.0-32.0); Chloride 104 meq/L (98-107); Glomerular Filtration Rate Greater Than 89 mL/min (>89); Glucose,Random 109 mg/dL (74-106); Potassium 3.3 meq/L (3.5-5.1); Sodium 137 meq/L (136-145)
--- NOTE | 2018-08-16 06:42 | P.CONOP ---
[facility] Orthopedics Consult Note - [facility] Consult date: 08/16/18 Chief complaint: Compound fracture tibia with fusiform hemorrhage Narrative: Akila is a 52-year-old female. She has a history of chronic pain, asthma, and alcohol abuse. She presented the emergency room after having a fall. She states that she lost her balance and describes a mechanical fall. She denies dizziness, syncope, loss of consciousness. She had immediate left leg pain and swelling. She presented to the emergency room where x-rays revealed a displaced left proximal tibia fracture. She is currently awake alert on the orthopedic floor. Her only new complaint is her left leg. She has chronic back pain. Her leg pain is worse with movement is improved with rest. Review of Systems Patient denies fevers, chills, weight loss, headache, visual changes, hearing loss, chest pain, palpitations, shortness of breath, nausea, vomiting, no urinary changes, diarrhea, bowel changes, neck pain, back pain, skin rashes, weakness of extremities, easy bleeding, enlarged lymph nodes, numbness of extremities, anxiety, or depression. Patient's social history, past medical history, and family history were reviewed on chart and with patient. [facility] - History History Provided By: Patient - Medical History Medical History: Medical History (Last Reviewed 08/16/18 @ 06:39 by Murphy Hernandez MD) Asthma Back pain Blood in stool COPD (chronic obstructive pulmonary disease) ETOH abuse FH: cholecystectomy FH: heart attack GERD (gastroesophageal reflux disease) Head trauma Hip fracture History of MRSA infection - Family History Family History: Family History (Last Reviewed 08/16/18 @ 06:39 by Murphy Hernandez MD) Other Family history of acute myocardial infarction - Social History I have reviewed the patient's Social History: Yes - Tobacco History Second Hand Smoke Exposure: Yes Tobacco Use In Past 30 Days: Yes Smoking Status: Current every day smoker Tobacco Type: Cigars - Alcohol History How Often Do You Have a Drink Containing Alcohol: 4 or more times a week - Substance Use History Substance History: No History of Abuse - Substance Use Type Marijuana Type: MARIJUANA Status: Active Route Used: Inhalation Frequency: occ Reason for Use: Feels Good Alcohol Type: ALCOHOL Status: Active Route Used: By Mouth Frequency: DAILY Reason for Use: Feels Good, Socialization Comment: HAS BEEN IN [employer] - Travel History Recent Travel in the [facility] Within the Last 8 Weeks: No Recent Travel Out of the Country Within the Last 8 Weeks: No - Immunization History Tetanus Immunization: <5 Years Hx Influenza Vaccine This Season: No Medications and Allergies Active Medications: Active Medications Acetaminophen (Tylenol) 650 mg PO Q4H PRN PRN Reason: Temp > 100.4 Acetaminophen (Tylenol) 650 mg PO Q6HR PRN PRN Reason: PAIN SCALE 1 TO 2 Hydrocodone Bitart/Acetaminophen ([place] 10/325) 1 tab PO Q4H PRN PRN Reason: PAIN SCALE 6 TO 10 Last Admin: 08/15/18 18:12 Dose: 1 tab Hydrocodone Bitart/Acetaminophen ([place] 5/325) 1 tab PO Q4H PRN PRN Reason: PAIN SCALE 3 TO 5 Al Hydroxide/Mg Hydroxide (Milk Of Magnesia Liq) 30 ml PO Q12H PRN PRN Reason: Mild Constipation Bisacodyl (Dulcolax Supp) 10 mg RECTAL DAILY PRN PRN Reason: SEVERE CONSITIPATION Flumazenil (Romazecon Inj) 0.2 mg IV.PUSH Q1M PRN PRN Reason: OVERSEDATION Folic Acid (Folic Acid) 1 mg PO DAILY [facility] Stop: 08/21/18 08:59 Haloperidol Lactate (Haldol Inj) 1 mg IV.PUSH Q15M PRN PRN Reason: for severe agitation Hydromorphone HCl (Dilaudid Pf Inj) 0.5 mg IV.PUSH Q3H PRN PRN Reason: PAIN 3-5; IF UABLE TO TAKE PO Hydromorphone HCl (Dilaudid Pf Inj) 1 mg IV.PUSH Q3H PRN PRN Reason: BREAKTHROUGH PAIN Last Admin: 08/16/18 04:13 Dose: 1 mg Hydromorphone HCl (Dilaudid Pf Inj) 1 mg IV.PUSH Q3H PRN PRN Reason: PAIN 6-10;IF UNABLE TO TAKE PO Sodium Chloride (Ns Inj) 1,000 mls @ 125 mls/hr IV.CONT .Q8H [facility] Last Admin: 08/16/18 04:14 Dose: 125 mls/hr Lactated Ringer's (Lr 1000 Ml Inj) 1,000 mls @ 30 mls/hr IV.CONT .Q24H ONE Stop: 08/17/18 03:44 Sodium Chloride (Ns Inj) 500 mls @ 30 mls/hr IV.CONT .[id number] ONE Stop: 08/16/18 20:24 Lactulose (Lactulose Liq) 30 ml PO DAILY PRN PRN Reason: SEVERE CONSITIPATION Lorazepam (Ativan) 1 mg PO Q4H PRN PRN Reason: for CIWA 8-10 Lorazepam (Ativan) 2 mg PO Q2H PRN PRN Reason: for CIWA 11-14 Lorazepam (Ativan Inj) 2 mg IV.PUSH Q2H PRN PRN Reason: for CIWA 11-14 Lorazepam (Ativan Inj) 2 mg IV.PUSH Q1H PRN PRN Reason: for CIWA 15-20 Lorazepam (Ativan Inj) 2 mg IV.PUSH Q15M PRN PRN Reason: for CIWA > 20 Lorazepam (Ativan Inj) 1 mg IV.PUSH Q4H PRN PRN Reason: for CIWA 8-10 Multivitamins/Minerals (Theragran-M) 1 tab PO DAILY [facility] Stop: 08/21/18 08:59 Naloxone HCl (Narcan Inj) 0.4 mg IV.PUSH UNSCH PRN PRN Reason: SEE LABEL COMMENTS Ondansetron HCl (Zofran Inj) 4 mg IV.PUSH Q6H PRN PRN Reason: NAUSEA OR VOMITING Pantoprazole Sodium (Protonix Inj) 40 mg IV.PUSH Q24H [facility] Last Admin: 08/15/18 10:38 Dose: 40 mg Senna/Docusate Sodium (Sophie-Colace) 1 tab PO BID [facility] Last Admin: 08/15/18 22:58 Dose: 1 tab Sennosides (Senokot) 17.2 mg PO Q12H PRN PRN Reason: Moderate Constipation Sodium Chloride (Ns Flush) 2 ml IV.FLUSH PRN PRN PRN Reason: FLUSH AFTER USING IV ACCESS Thiamine HCl (Vitamin B1) 100 mg PO DAILY [facility] Allergies Allergy/AdvReac Type Severity Reaction Status Date / Time codeine Allergy Unknown Itching Unverified 08/15/18 07:48 Home Medications Medication Instructions Recorded Confirmed Type aspirin [Dallin Advanced] 500 mg PO Q4-6H PRN 08/15/18 08/15/18 History diphenhydramine HCl [Benadryl] 25 mg PO Q4-6H PRN 08/15/18 08/15/18 History omeprazole magnesium [Prilosec OTC] 20 mg PO DAILY 08/15/18 08/15/18 History Exam Vital signs: Vital Signs 08/15/18 07:31 08/15/18 08:18 08/15/18 08:39 Temperature 98.2 F Pulse Rate 103 H 102 H 104 H Respiratory Rate 18 Blood Pressure 91/67 L 135/80 Pulse Oximetry 97 97 100 08/15/18 09:19 08/15/18 09:20 08/15/18 10:39 Temperature Pulse Rate 105 H 86 Respiratory Rate 16 16 18 Blood Pressure 136/76 138/75 Pulse Oximetry 100 97 08/15/18 12:10 08/15/18 12:30 08/15/18 12:55 Temperature 97.7 F 97.7 F 97.5 F L Pulse Rate 101 H 104 H 98 H Respiratory Rate 18 18 18 Blood Pressure 126/70 126/73 142/70 H Pulse Oximetry 97 100 100 08/15/18 14:06 08/15/18 14:20 08/15/18 14:59 Temperature 98.0 F 97.9 F 97.9 F Pulse Rate 100 H 96 H 97 H Respiratory Rate 18 16 18 Blood Pressure 160/75 H 156/81 H 152/69 H Pulse Oximetry 100 99 100 08/15/18 16:00 08/15/18 18:00 08/15/18 20:00 Temperature 98.2 F 98.5 F Pulse Rate 96 H 100 H 86 Respiratory Rate 18 18 20 Blood Pressure 166/89 H 164/88 H 171/85 H Pulse Oximetry 99 97 95 08/16/18 00:00 08/16/18 04:00 Temperature 98.9 F 98.6 F Pulse Rate 110 H 116 H Respiratory Rate 16 20 Blood Pressure 163/79 H 160/90 H Pulse Oximetry 96 95 Intake & Output 08/15/18 08/15/18 08/16/18 06:59 18:59 06:59 Intake Total 400 / 400 1000 / 1000 Balance 400 / 400 1000 / 1000 Weight 66 kg 70.4 kg Intake: IV 1000 / 1000 NS Inj 1,000 ML @ 125 mls/hr IV 1000 / 1000 .CONT .Q8H [facility] Rx#:[id number] Intake (Blood Product) Amt 400 / 400 Rbc As-3 Leukoreduced Unit 0 / 0 [id number] Rbc As-3 Leukoreduced Unit 400 / 400 [id number] Other: Weight On Admission 66 kg Narrative: Suyapa is a 52-year-old female. She is mildly anxious. General: Awake and alert. No acute distress. Appears well-developed well- nourished Head: Normocephalic, atraumatic pupils are equal Neck: Soft, nontender, trachea midline Abdomen: Soft, nondistended Examination of right arm reveals no pain or deformity with shoulder, elbow, or wrist motion. Skin is intact. Radial pulse is palpable. Normal capillary refill in fingers. Sensation is intact in radial, ulnar, and median nerve distributions. Rehabilitation Tech strength is +5. No lymphadenopathy noted. Examination of left arm reveals no pain or deformity with shoulder, elbow, or wrist motion. Skin is intact. Radial pulse is palpable. Normal capillary refill in fingers. Sensation is intact in radial, ulnar, and median nerve distributions. Rehabilitation Tech strength is +5. No lymphadenopathy noted. Examination of left lower extremity reveals no tenderness about her hip or ankle. She is very tender to palpation about the knee. She has pain with any knee motion. She has moderate swelling of the knee. Skin is intact. Sensation is intact in left foot. Dorsalis pedis pulse is palpable. Normal capillary refill and feet. Thigh and calf compartments are soft. No lymphadenopathy noted. She has minimal pain with active and passive ankle motion. Examination of right lower extremity reveals no pain or deformity with hip, knee , or ankle motion. Skin is intact. Sensation is intact in right foot. Dorsalis pedis pulse is palpable. Normal capillary refill and feet. Thigh and calf compartments are soft. No lymphadenopathy noted. +5 strength of ankle dorsiflexion and plantarflexion. Results - Labs Result Diagrams: 08/16/18 05:00 08/16/18 05:00 Labs: Laboratory Results - last 24 hr 08/15/18 08/15/18 08/15/18 08:10 08:10 08:10 CBC w Diff Slide review pending WBC 8.9 RBC 2.49 L Hgb 5.8 L* Hct 18.0 L* MCV 72.2 L MCH 23.3 L MCHC 32.3 RDW 17.9 H Plt Count 231 MPV 8.7 Neut % (Auto) 79.1 H Lymph % (Auto) 12.6 [place] % (Auto) 4.2 Eos % (Auto) 3.6 Baso % (Auto) 0.5 Neut # (Auto) 7.1 Lymph # (Auto) 1.1 [place] # (Auto) 0.4 Eos # (Auto) 0.3 Baso # (Auto) 0.0 WBC Differential . Diff Scan Auto diff confirmed Differential Comment . Target Cells 1+ H PT INR APTT Sodium 131 L Potassium 3.6 Chloride 100 Carbon Dioxide 16.9 L Anion Gap 14 BUN 5 L Creatinine 0.73 Estimated GFR 83 L Random Glucose 104 Calcium 7.9 L Iron 13 L TIBC 543 H % Saturation 2.4 L Ferritin 5 L Total Bilirubin 0.2 AST 62 H ALT 20 Alkaline Phosphatase 137 H Total Protein 8.0 Albumin 3.0 L Lipase 217 Serum Alcohol 277 H Blood Type Antibody Screen MTS Gel Crossmatch Bld Prod Order Comment 08/15/18 08/15/18 08/16/18 09:04 09:04 03:26 CBC w Diff WBC RBC Hgb 8.6 L D Hct 25.6 L MCV MCH MCHC RDW Plt Count MPV Neut % (Auto) Lymph % (Auto) [place] % (Auto) Eos % (Auto) Baso % (Auto) Neut # (Auto) Lymph # (Auto) [place] # (Auto) Eos # (Auto) Baso # (Auto) WBC Differential Diff Scan Differential Comment Target Cells PT 11.4 INR 1.1 APTT 27.1 Sodium Potassium Chloride Carbon Dioxide Anion Gap BUN Creatinine Estimated GFR Random Glucose Calcium Iron TIBC % Saturation Ferritin Total Bilirubin AST ALT Alkaline Phosphatase Total Protein Albumin Lipase Serum Alcohol Blood Type O Positive Antibody Screen Negative MTS Gel Crossmatch See Detail Bld Prod Order Comment 08/16/18 08/16/18 05:00 05:00 CBC w Diff WBC 6.3 RBC 3.43 L Hgb 8.6 L Hct 26.2 L MCV 76.3 L D MCH 25.1 L MCHC 32.9 RDW 19.1 H Plt Count 164 MPV 8.1 Neut % (Auto) 80.4 H Lymph % (Auto) 8.1 L [place] % (Auto) 8.7 H Eos % (Auto) 2.0 Baso % (Auto) 0.8 Neut # (Auto) 5.1 Lymph # (Auto) 0.5 L [place] # (Auto) 0.5 Eos # (Auto) 0.1 Baso # (Auto) 0.0 WBC Differential . Diff Scan Differential Comment Auto diff final Target Cells PT INR APTT Sodium 137 Potassium 3.3 L Chloride 104 Carbon Dioxide 20.3 L Anion Gap 13 BUN 6 L Creatinine 0.49 L Estimated GFR Greater than 89 Random Glucose 109 H Calcium 8.2 L Iron TIBC % Saturation Ferritin Total Bilirubin AST ALT Alkaline Phosphatase Total Protein Albumin Lipase Serum Alcohol Blood Type Antibody Screen MTS Gel Crossmatch Bld Prod Order Comment - Diagnostic results Imaging: Impressions Tibia/Fibula X-Ray 08/15/18 07:41 CONCLUSION: 1. Acute displaced comminuted fractures involving left proximal tibia which extends to the articular surface as well as the proximal fibula. Fat-fluid level within the suprapatellar bursa. 2. Diffuse osteoporosis of the left tibia, fibula and visualized portion of the distal femur. Chest X-Ray 08/15/18 08:38 CONCLUSION: Negative examination. Lower Extremity CT 08/15/18 12:11 CONCLUSION: 1. Acute comminuted mildly displaced fractures involving the proximal tibia and fibula are noted. The proximal tibial fracture extends to the articular surface in the region of the intercondylar eminence. 2. Moderate-sized suprapatellar knee joint effusion which contains a fat-fluid level. 3. Diffuse osteoporosis involving the bones of the lower leg is noted. Knee CT 08/15/18 12:16 CONCLUSION: 1. Evidence of an acute displaced comminuted fracture involving the left proximal tibial shaft which extends superiorly into the region of the intercondylar tubercle and involves the articular surface. There is also an acute comminuted fracture involving the proximal fibula. 2. Moderate-sized suprapatellar effusion demonstrates a fat-fluid level. 3. Underlying diffuse osteoporosis involving the distal femur, patella, proximal tibia and proximal fibula is noted. Knee x-ray: report reviewed, image reviewed Assessment and Plan - Assessment and Plan Ashley has a displaced left proximal tibia fracture that extends into the articular surface. There is a split in the tibial plateau. At this point she has moderate swelling around the knee. It would not be safe to proceed with open reduction internal fixation today. She will need staged procedure. I will plan on closed reduction and external fixation today followed by delayed open reduction internal fixation of a soft tissue swelling has improved. The risk and benefits of surgery were discussed in depth with patient. All questions were answered. The risk and benefits of surgery were discussed in depth with patient. The risk of surgery include bleeding, infection, injuries to arteries, nerves, or blood vessels, infection, wound complications, nonunion, malunion, painful hardware, and need for further surgery. I also discussed medical complications including blood clots, pneumonia, stroke, heart attack, and . Informed consent was obtained and all questions were answered. N.p.o.--plan on surgery this morning Calcium and vitamin D supplementation Physical therapy consult--nonweightbearing SCDs, Franco Roblero A mid-level provider in my office (nurse practitioner or physician first assistant) may see this patient on follow-up visits and continue to implement the objectives of this plan including: Starting or adjusting medications, injections , cast application, orthotics, brace application, physical therapy, radiological studies (including x-ray, MRI, CT, ultrasound, bone scan), vascular studies, neurologic studies, specialist consultation, and proceeding with surgical management, as appropriate.
[2018-08-16] MEDS: Senna/Docusate Sodium 8.6/50 MG Tablet PO SCH ×2 (09:04→20:15)
[2018-08-16] MEDS: Multivitamin/Minerals Therapeutic Tablet PO SCH (09:04)
[2018-08-16] MEDS: Folic Acid 1 MG Tablet PO SCH (09:04)
[2018-08-16] MEDS ORDERED: fentaNYL Citrate Inj 100 MCG/2 ML Ampul ONE (09:45)
[2018-08-16] MEDS ORDERED: Famotidine PF Inj 20 MG/2 ML Vial ONE (09:45)
[2018-08-16] MEDS ORDERED: ceFAZolin 2 GM Premix Inj 2 GM/50 ML PIGGYBACK IV.SIG ONE (09:49)
[2018-08-16] MEDS ORDERED: Glycopyrrolate Inj 1 MG/5 ML Syringe IV.PUSH ONE (10:13)
[2018-08-16] MEDS ORDERED: Neostigmine Inj 5 MG/5 ML Syringe IV.PUSH ONE (10:13)
[2018-08-16] MEDS ORDERED: Succinylcholine Inj 100 MG/5 ML Syringe IV.PUSH ONE (10:13)
[2018-08-16] MEDS ORDERED: Lidocaine PF 1% Inj 5 ML Syringe OTHER ONE (10:13)
[2018-08-16] MEDS ORDERED: Post-op Orders (for Pharmacy) OTHER STA (10:58)
--- NOTE | 2018-08-16 11:03 | P.OP ---
- Preoperative Diagnosis (1) Closed bicondylar fracture of left tibial plateau Date of procedure: 08/16/18 Anesthesia: GETA Surgeon: Murphy Hernandez MD Environmental Conservation Professor: MARISSA Chauhan PA-C The surgical procedure was assisted by my physician medical assistant internal medicine. My P.A. presence was necessary throughout this case for the manipulation and positioning of the surgical extremity. My P.A. was assisting me throughout the duration of this procedure. The skill set of a physician medical assistant internal medicine was medically necessary to complete this procedure. During the surgical case the surgical corsetier was working at the back table and the physician medical assistant internal medicine was directly assisting me. Operation and Findings: Ashley sustained an injury resulting in comminuted fractures of [left tibia plateau]. Patient was seen and evaluated preoperatively and found to have too much swelling to proceed with open reduction internal fixation. Risk and benefits of surgery were discussed in depth with patient and informed consent was confirmed. Surgical site was marked. Patient was brought to operating room and placed on the OR table. Patient was given IV sedation and GETA. Patient received IV antibiotics and timeout procedure was performed. Operative leg was prepped with alcohol followed by Hibiclens and draped in the usual sterile fashion. Two small incisions were made along the anterior femur and the tibia. Soft tissue was dissected bluntly. Cannulas were placed down to the cortex of bone. Pin sites were predrilled. Synthes EASTMAN-coated pins were placed into the femur and tibia. Fluoroscopy was used to confirm appropriate pin placement. An external fixator construct was now created with clamps and bars. Next attention was turned to reduction. Traction was applied. Fracture was manipulated. Good alignment of the fracture was obtained. Fluoroscopy was used to confirm appropriate alignment of fracture. The external fixator was now tightened to hold reduction. Sterile dressings were applied. Patient was awakened and transferred to recovery room in stable condition. The soft tissue was reevaluated. Patient did have swelling around the knee and calf but compartments were soft and compressible with no signs of compartment syndrome.
[2018-08-16] MEDS ORDERED: *Meperidine Inj 25 MG/ML Vial PERIprocedural Use ONLY ONE (11:16)
--- NOTE | 2018-08-16 11:25 | P.PNOP ---
Subjective Interval history: Patient is transferred to PACU in stable condition after reduction of left tibia with external fixation Physical Exam Vital signs: Vital Signs 08/15/18 12:10 08/15/18 12:30 08/15/18 12:55 Temperature 97.7 F 97.7 F 97.5 F L Pulse Rate 101 H 104 H 98 H Respiratory Rate 18 18 18 Blood Pressure 126/70 126/73 142/70 H Pulse Oximetry 97 100 100 08/15/18 14:06 08/15/18 14:20 08/15/18 14:59 Temperature 98.0 F 97.9 F 97.9 F Pulse Rate 100 H 96 H 97 H Respiratory Rate 18 16 18 Blood Pressure 160/75 H 156/81 H 152/69 H Pulse Oximetry 100 99 100 08/15/18 16:00 08/15/18 18:00 08/15/18 20:00 Temperature 98.2 F 98.5 F Pulse Rate 96 H 100 H 86 Respiratory Rate 18 18 20 Blood Pressure 166/89 H 164/88 H 171/85 H Pulse Oximetry 99 97 95 08/16/18 00:00 08/16/18 04:00 08/16/18 07:13 Temperature 98.9 F 98.6 F Pulse Rate 110 H 116 H 105 H Respiratory Rate 16 20 Blood Pressure 163/79 H 160/90 H Pulse Oximetry 96 95 Intake & Output 08/15/18 08/16/18 08/16/18 18:59 06:59 18:59 Intake Total 400 / 400 1240 / 1240 Balance 400 / 400 1240 / 1240 Weight 66 kg 70.1 kg Intake: IV 1000 / 1000 NS Inj 1,000 ML @ 125 mls/hr IV 1000 / 1000 .CONT .Q8H [facility] Rx#:[id number] Oral 240 / 240 Intake (Blood Product) Amt 400 / 400 Rbc As-3 Leukoreduced Unit 0 / 0 [id number] Rbc As-3 Leukoreduced Unit 400 / 400 [id number] Other: # Voids 0 Date of Last Bowel Movement 08/16/18 Weight On Admission 66 kg Narrative: Left lower extremity: No laxity of hip. Proximal tibia fracture is approximated and external fixation is in place. She has swelling of +3. Compartments are semisoft. She has intact distal pulses and good capillary refills Results - Labs CBC & Chem 7: 08/16/18 05:00 08/16/18 05:00 Laboratory Results - last 24 hr 08/15/18 08/15/18 08/16/18 08:10 09:04 03:26 WBC RBC Hgb 8.6 L D Hct 25.6 L MCV MCH MCHC RDW Plt Count MPV Neut % (Auto) Lymph % (Auto) [place] % (Auto) Eos % (Auto) Baso % (Auto) Neut # (Auto) Lymph # (Auto) [place] # (Auto) Eos # (Auto) Baso # (Auto) WBC Differential Differential Comment Sodium Potassium Chloride Carbon Dioxide Anion Gap BUN Creatinine Estimated GFR Random Glucose Calcium Iron 13 L TIBC 543 H % Saturation 2.4 L Ferritin 5 L Lipase 217 Blood Type O Positive Antibody Screen Negative MTS Gel Crossmatch See Detail Bld Prod Order Comment 08/16/18 08/16/18 08/16/18 05:00 05:00 09:09 WBC 6.3 RBC 3.43 L Hgb 8.6 L Hct 26.2 L MCV 76.3 L D MCH 25.1 L MCHC 32.9 RDW 19.1 H Plt Count 164 MPV 8.1 Neut % (Auto) 80.4 H Lymph % (Auto) 8.1 L [place] % (Auto) 8.7 H Eos % (Auto) 2.0 Baso % (Auto) 0.8 Neut # (Auto) 5.1 Lymph # (Auto) 0.5 L [place] # (Auto) 0.5 Eos # (Auto) 0.1 Baso # (Auto) 0.0 WBC Differential . Differential Comment Auto diff final Sodium 137 Potassium 3.3 L Chloride 104 Carbon Dioxide 20.3 L Anion Gap 13 BUN 6 L Creatinine 0.49 L Estimated GFR Greater than 89 Random Glucose 109 H Calcium 8.2 L Iron TIBC % Saturation Ferritin Lipase Blood Type Antibody Screen MTS Gel Crossmatch See Detail Bld Prod Order Comment - Imaging Impressions Lower Extremity CT 08/15/18 12:11 CONCLUSION: 1. Acute comminuted mildly displaced fractures involving the proximal tibia and fibula are noted. The proximal tibial fracture extends to the articular surface in the region of the intercondylar eminence. 2. Moderate-sized suprapatellar knee joint effusion which contains a fat-fluid level. 3. Diffuse osteoporosis involving the bones of the lower leg is noted. Knee CT 08/15/18 12:16 CONCLUSION: 1. Evidence of an acute displaced comminuted fracture involving the left proximal tibial shaft which extends superiorly into the region of the intercondylar tubercle and involves the articular surface. There is also an acute comminuted fracture involving the proximal fibula. 2. Moderate-sized suprapatellar effusion demonstrates a fat-fluid level. 3. Underlying diffuse osteoporosis involving the distal femur, patella, proximal tibia and proximal fibula is noted. Assessment and Plan - Assessment and Plan Left proximal tibia shaft and plateau fracture status post reduction with external fixation POD #0 Ice and elevation Pin care twice daily Calcium and vitamin D supplementation Physical therapy consult--nonweightbearing Gabi, Franco Roblero We will plan on surgery early next week when swelling has improved.
--- NOTE | 2018-08-16 11:44 | XR ---
EXAM DATE: 08/16/2018 12:00 AM EDT AGE/SEX: 52 years / Female INDICATIONS: Surgical repair, external fixator placement. CLINICAL DATA: This is the patient's initial encounter. Patient reports that signs and symptoms have been present for 1 day and indicates a pain score of Nonresponsive. MEDICAL/SURGICAL HISTORY: None. None. COMPARISON: [facility], CT KNEE LEFT W/O CONTRAST, 08/15/2018. . FINDINGS: Intraoperative limited views of the right proximal tibia and fibula were performed and demonstrate th e previously noted comminuted fractures of both bones. The alignment is slightly improved with only v génesis slight persistent displacement of the tibial fracture. CONCLUSION: Slight improvement of the alignment of the previously noted proximal tibial and fibular fractures wit h only very slight persistent displacement of the tibial fracture. Electronically signed by: Emory Guerrero MD 08/16/2018 11:43 AM EDT
[2018-08-16] MEDS: Ketorolac Inj 30 MG/ML (IVP) Vial IV.PUSH SCH ×2 (11:46→23:40)
[2018-08-16] MEDS: Potassium Chlor 10 mEq Premix 10 MEQ/100 ML PIGGYBACK IV.SIG SCH ×2 (12:03→14:31)
[2018-08-16] MEDS: Pantoprazole Inj 40 MG Vial IV.PUSH SCH (12:06)
[2018-08-16] MEDS: Calcium/Vitamin D 250/125 MG Tablet PO SCH ×2 (12:06→17:27)
[2018-08-16] MEDS: Ferrous Sulfate 325 MG Tablet PO SCH ×2 (12:06→17:28)
--- NOTE | 2018-08-16 12:37 | P.PN ---
Subjective Interval history: Follow-up visit for left tibial fracture, anemia with possible GI bleed. Patient seen and examined resting in bed with nurse at bedside. Patient is status post left tibial surgery with external fixation this morning. Patient presented to the emergency department with a hemoglobin of 5.8 and hematocrit of 18.0 she is received 2 units of PRBCs and her hemoglobin stable. She complains of left leg pain. She denies any nausea, vomiting, abdominal pain, cough, shortness of breath or chest pain. No reports of dizziness or lightheadedness. Patient states that she frequently has NSAIDs including for back pain. At times will have 5 tablets daily x1. She has been noticing black stools home. Physical Exam Vital signs: Vital Signs 08/15/18 12:55 08/15/18 14:06 08/15/18 14:20 Temperature 97.5 F L 98.0 F 97.9 F Pulse Rate 98 H 100 H 96 H Respiratory Rate 18 18 16 Blood Pressure 142/70 H 160/75 H 156/81 H Pulse Oximetry 100 100 99 08/15/18 14:59 08/15/18 16:00 08/15/18 18:00 Temperature 97.9 F 98.2 F Pulse Rate 97 H 96 H 100 H Respiratory Rate 18 18 18 Blood Pressure 152/69 H 166/89 H 164/88 H Pulse Oximetry 100 99 97 08/15/18 20:00 08/16/18 00:00 08/16/18 04:00 Temperature 98.5 F 98.9 F 98.6 F Pulse Rate 86 110 H 116 H Respiratory Rate 20 16 20 Blood Pressure 171/85 H 163/79 H 160/90 H Pulse Oximetry 95 96 95 08/16/18 07:13 08/16/18 11:10 08/16/18 11:45 Temperature 98.5 F Pulse Rate 105 H 119 H 107 H Respiratory Rate 20 18 Blood Pressure 162/85 H 168/83 H Pulse Oximetry 99 99 Intake & Output 08/15/18 08/16/18 08/16/18 18:59 06:59 18:59 Intake Total 400 / 400 1240 / 1240 Balance 400 / 400 1240 / 1240 Weight 66 kg 70.1 kg Intake: IV 1000 / 1000 NS Inj 1,000 ML @ 125 mls/hr IV 1000 / 1000 .CONT .Q8H [facility] Rx#:[id number] Oral 240 / 240 Intake (Blood Product) Amt 400 / 400 Rbc As-3 Leukoreduced Unit 0 / 0 [id number] Rbc As-3 Leukoreduced Unit 400 / 400 [id number] Other: # Voids 0 Date of Last Bowel Movement 08/16/18 Weight On Admission 66 kg Narrative: GENERAL: Well-developed, well-nourished in no distress SKIN: Warm and dry. Facial and right upper chest hemangioma. HEAD: Atraumatic. Normocephalic. EYES: Pupils equal and round. No scleral icterus. No injection or drainage. ENT: No nasal bleeding or discharge. Mucous membranes pink and moist. NECK: Trachea midline. CARDIOVASCULAR: Regular rate and rhythm. RESPIRATORY: No accessory muscle use. Clear to auscultation. Breath sounds equal bilaterally. GASTROINTESTINAL: Abdomen soft, non-tender, nondistended. Positive bowel sounds. MUSCULOSKELETAL: Extremities without clubbing, cyanosis, or edema. Left lower extremity with immobilizer in place, trace edema noted down to the foot. Positive pedal pulses. + Movement, sensation. Denies any numbness or tingling. NEUROLOGICAL: Awake and alert. No obvious cranial nerve deficits. Motor grossly within normal limits. Five out of 5 muscle strength in the arms and right leg, left leg mobility limited due to external fixator. Normal speech. PSYCHIATRIC: Appropriate mood and affect; insight and judgment normal. Results - Labs CBC & Chem 7: 08/16/18 05:00 08/16/18 05:00 Laboratory Results - last 24 hr 08/15/18 08/16/18 08/16/18 09:04 03:26 05:00 WBC 6.3 RBC 3.43 L Hgb 8.6 L D 8.6 L Hct 25.6 L 26.2 L MCV 76.3 L D MCH 25.1 L MCHC 32.9 RDW 19.1 H Plt Count 164 MPV 8.1 Neut % (Auto) 80.4 H Lymph % (Auto) 8.1 L [place] % (Auto) 8.7 H Eos % (Auto) 2.0 Baso % (Auto) 0.8 Neut # (Auto) 5.1 Lymph # (Auto) 0.5 L [place] # (Auto) 0.5 Eos # (Auto) 0.1 Baso # (Auto) 0.0 WBC Differential . Differential Comment Auto diff final Sodium Potassium Chloride Carbon Dioxide Anion Gap BUN Creatinine Estimated GFR Random Glucose Calcium Blood Type O Positive Antibody Screen Negative MTS Gel Crossmatch See Detail Bld Prod Order Comment 08/16/18 08/16/18 05:00 09:09 WBC RBC Hgb Hct MCV MCH MCHC RDW Plt Count MPV Neut % (Auto) Lymph % (Auto) [place] % (Auto) Eos % (Auto) Baso % (Auto) Neut # (Auto) Lymph # (Auto) [place] # (Auto) Eos # (Auto) Baso # (Auto) WBC Differential Differential Comment Sodium 137 Potassium 3.3 L Chloride 104 Carbon Dioxide 20.3 L Anion Gap 13 BUN 6 L Creatinine 0.49 L Estimated GFR Greater than 89 Random Glucose 109 H Calcium 8.2 L Blood Type Antibody Screen MTS Gel Crossmatch See Detail Bld Prod Order Comment - Imaging Impressions Lower Extremity CT 08/15/18 12:11 CONCLUSION: 1. Acute comminuted mildly displaced fractures involving the proximal tibia and fibula are noted. The proximal tibial fracture extends to the articular surface in the region of the intercondylar eminence. 2. Moderate-sized suprapatellar knee joint effusion which contains a fat-fluid level. 3. Diffuse osteoporosis involving the bones of the lower leg is noted. Knee CT 08/15/18 12:16 CONCLUSION: 1. Evidence of an acute displaced comminuted fracture involving the left proximal tibial shaft which extends superiorly into the region of the intercondylar tubercle and involves the articular surface. There is also an acute comminuted fracture involving the proximal fibula. 2. Moderate-sized suprapatellar effusion demonstrates a fat-fluid level. 3. Underlying diffuse osteoporosis involving the distal femur, patella, proximal tibia and proximal fibula is noted. Tibia/Fibula X-Ray 08/16/18 00:00 CONCLUSION: Slight improvement of the alignment of the previously noted proximal tibial and fibular fractures with only very slight persistent displacement of the tibial fracture. Assessment and Plan - Plan This is a 52-year-old female with a history of alcohol abuse, asthma and chronic right hip pain. Patient presents to the emergency department because of acute left leg pain s/p fall. Tib-fib x-ray shows acute displaced comminuted fracture involving the left proximal tibia. Acute displaced comminuted left tibial fracture s/p fall. -Lower extremity CT with acute comminuted mildly displaced fractures involving the proximal tibia and fibula are noted. The proximal tibial fracture extends to the articular surface in the region of the intercondylar eminence. Moderate- sized suprapatellar knee joint effusion. - Knee CT acute displaced comminuted fracture involving the left proximal tibial shaft which extends superiorly into the region of the intercondylar tubercle and involves the articular surface. There is also an acute comminuted fracture involving the proximal fibula. Once again moderate size suprapatellar effusion demonstrates a fat-fluid level. -Orthopedic services consulted, patient is status post reduction with external fixation 08/[address] Brian. Plans for surgery once again early next week when swelling improved. -Calcium/vitamin D supplementation, PT consult nonweightbearing to left lower extremity -Pain control with p.o. [place], morphine for breakthrough pain. Microcytic anemia with suspected GI bleed Iron studies consistent SUSAN -H&H 5.8/18.0--> received 2 units of PRBCs with H&H this morning 8.6/26.2 -Concerns for GI bleed secondary to reports of dark stools and overuse of NSAIDs -Gastroenterology consulted, appreciate recommendations. -Clear liquid diet keep hemoglobin greater than 8, Protonix drip, endoscopy in the next day or 2 per GI. - Check occult blood in stool, follow H&H Alcohol abuse with elevated AST -Serum alcohol level on admission 277 -CIWA -Alcohol cessation encouraged -Mild hyponatremia improved, mild hypokalemia. Replaced with KCl IV -Recheck labs in a.m. 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
--- NOTE | 2018-08-16 15:53 | ECG ---
Date Performed: 08/15/2018 Time Performed: 10:11:50 PTAGE: 52 years EKG: SINUS TACHYCARDIA Otherwise normal ECG. Since previous tracing, no significant change noted , except slight Increase in heart rate. ABNORMAL ECG PREVIOUS TRACING : 03/25/2018 10.32 DOCTOR: Federico Luica Interpretating Date/Time 08/16/2018 15:52:43
[2018-08-16] MEDS: Morphine Inj 4 MG/ML Vial IV.PUSH PRN ×2 (20:16→23:47)
[2018-08-17] MEDS: Sod Chloride 0.9% Inj 1,000 ML IV.CONT SCH ×3 (03:46→17:41)
[2018-08-17] MEDS: Morphine Inj 4 MG/ML Vial IV.PUSH PRN ×4 (03:49→20:29)
--- NOTE | 2018-08-17 07:14 | P.PNOP ---
Subjective Interval history: No complaints. In bed and comfortable Physical Exam Vital signs: Vital Signs 08/16/18 11:10 08/16/18 11:45 08/16/18 12:00 Temperature 98.5 F 97.4 F L Pulse Rate 119 H 107 H 116 H Respiratory Rate 20 18 16 Blood Pressure 162/85 H 168/83 H 181/84 H Pulse Oximetry 99 99 100 08/16/18 12:41 08/16/18 12:53 08/16/18 15:39 Temperature Pulse Rate Respiratory Rate 18 18 Blood Pressure Pulse Oximetry 97 08/16/18 16:00 08/16/18 16:09 08/16/18 20:00 Temperature 98.1 F 98.1 F Pulse Rate 98 H 94 H Respiratory Rate 18 18 18 Blood Pressure 178/82 H 161/87 H Pulse Oximetry 98 99 08/16/18 23:55 08/17/18 00:00 08/17/18 04:00 Temperature 98.5 F 98.5 F Pulse Rate 95 H 104 H 109 H Respiratory Rate 18 18 Blood Pressure 146/75 H 154/78 H Pulse Oximetry 99 96 08/17/18 04:44 Temperature Pulse Rate Respiratory Rate 18 Blood Pressure Pulse Oximetry Intake & Output 08/16/18 08/17/18 08/17/18 18:59 06:59 18:59 Intake Total 1950 / 1950 1000 / 1000 Output Total 405 / 405 Balance 1545 / 1545 1000 / 1000 Weight 69.6 kg Intake: IV 1250 / 1250 1000 / 1000 NS Inj 1,000 ML @ 125 mls/hr IV 1000 / 1000 1000 / 1000 .CONT .Q8H [facility] Rx#:[id number] KCl 10 mEq Premix Inj 10 meq In 200 / 200 100 ml @ 100 mls/hr IV.SIG Q1H [facility] Rx#:[id number] Ancef 2 GM Premix Inj 2 gm In 50 / 50 50 ml @ 0 mls/hr IV.SIG .STK- [facility] Rx#:[id number] Anesthesia Amount 700 / 700 Output: Urine 400 / 400 Estimated Blood Loss 5 / 5 Other: # Voids 1 Date of Last Bowel Movement 08/16/18 08/16/18 Narrative: Pin sites clean. Mild swelling. Motor and sensory examination appears normal Results - Labs CBC & Chem 7: 08/16/18 05:00 08/16/18 05:00 Laboratory Results - last 24 hr 10/05/18 09:09 MTS Gel Crossmatch See Detail - Imaging Impressions Tibia/Fibula X-Ray 08/16/18 00:00 CONCLUSION: Slight improvement of the alignment of the previously noted proximal tibial and fibular fractures with only very slight persistent displacement of the tibial fracture. Assessment and Plan - Assessment and Plan Left proximal tibia shaft and plateau fracture status post reduction with external fixation POD #1 Ice and elevation Pin care twice daily Calcium and vitamin D supplementation Physical therapy consult--nonweightbearing Gabi, Franco Roblero We will plan on surgery early next week, when swelling has improved. Stable orthopedically
[2018-08-17 08:05] LABS: Hematocrit 22.7 % (35.0-46.0); Hemoglobin 7.4 gm/dL (11.6-15.3)
[2018-08-17] MEDS: Multivitamin/Minerals Therapeutic Tablet PO SCH (08:36)
[2018-08-17] MEDS: Calcium/Vitamin D 250/125 MG Tablet PO SCH ×3 (08:36→17:40)
[2018-08-17] MEDS: Folic Acid 1 MG Tablet PO SCH (08:37)
[2018-08-17 08:38] LABS: Albumin 2.4 g/dL (3.4-5.0); Anion Gap 10 meq/L (5-15); Aspartate Aminotransferase 96 U/L (15-37); Blood Urea Nitrogen 4 mg/dL (7-18); Carbon Dioxide 23.8 meq/L (21.0-32.0); Chloride 102 meq/L (98-107); Glomerular Filtration Rate Greater Than 89 mL/min (>89); Glucose,Random 80 mg/dL (74-106); Potassium 3.9 meq/L (3.5-5.1); Sodium 136 meq/L (136-145)
[2018-08-17] MEDS: Senna/Docusate Sodium 8.6/50 MG Tablet PO SCH ×2 (08:38→20:24)
[2018-08-17 08:42] LABS: Alanine Aminotransferase 29 U/L (10-53); Alkaline Phosphatase 131 U/L (45-117); Total Protein 6.6 g/dL (6.4-8.2)
--- NOTE | 2018-08-17 09:13 | P.PN ---
Subjective Interval history: Follow-up visit for left tibial fracture, and anemia likely due to GI bleed. Nurse reports that patient has been using IV pain medication exclusively as she complains of nausea and vomiting with oral pain medication. Patient is seen and examined in bed appears to be in no acute distress. Has complaints over breakfast this morning making her nauseous. She denies any fevers, chills, cough, shortness of breath, chest pain, lightheadedness or dizziness. Discussed with patient oral pain medication, antiemetics and attempting to take pain medication with food. We also discussed possibly changing oral pain medication to help minimize nausea if possible. Physical Exam Vital signs: Vital Signs 08/16/18 11:10 08/16/18 11:45 08/16/18 12:00 Temperature 98.5 F 97.4 F L Pulse Rate 119 H 107 H 116 H Respiratory Rate 20 18 16 Blood Pressure 162/85 H 168/83 H 181/84 H Pulse Oximetry 99 99 100 08/16/18 12:41 08/16/18 12:53 08/16/18 15:39 Temperature Pulse Rate Respiratory Rate 18 18 Blood Pressure Pulse Oximetry 97 08/16/18 16:00 08/16/18 16:09 08/16/18 20:00 Temperature 98.1 F 98.1 F Pulse Rate 98 H 94 H Respiratory Rate 18 18 18 Blood Pressure 178/82 H 161/87 H Pulse Oximetry 98 99 08/16/18 23:55 08/17/18 00:00 08/17/18 04:00 Temperature 98.5 F 98.5 F Pulse Rate 95 H 104 H 109 H Respiratory Rate 18 18 Blood Pressure 146/75 H 154/78 H Pulse Oximetry 99 96 08/17/18 04:44 08/17/18 08:00 Temperature 97.6 F Pulse Rate 94 H Respiratory Rate 18 18 Blood Pressure 144/67 H Pulse Oximetry 97 Intake & Output 08/16/18 08/17/18 08/17/18 18:59 06:59 18:59 Intake Total 1950 / 1950 1000 / 1000 Output Total 405 / 405 Balance 1545 / 1545 1000 / 1000 Weight 69.6 kg Intake: IV 1250 / 1250 1000 / 1000 NS Inj 1,000 ML @ 125 mls/hr IV 1000 / 1000 1000 / 1000 .CONT .Q8H [facility] Rx#:[id number] KCl 10 mEq Premix Inj 10 meq In 200 / 200 100 ml @ 100 mls/hr IV.SIG Q1H [facility] Rx#:[id number] Ancef 2 GM Premix Inj 2 gm In 50 / 50 50 ml @ 0 mls/hr IV.SIG .STK- [facility] Rx#:[id number] Anesthesia Amount 700 / 700 Output: Urine 400 / 400 Estimated Blood Loss 5 / 5 Other: # Voids 1 Date of Last Bowel Movement 08/16/18 08/16/18 Narrative: GENERAL: Well-developed, well-nourished in no distress SKIN: Warm and dry. Facial and chest hemangioma. HEAD: Atraumatic. Normocephalic. EYES: Pupils equal and round. No scleral icterus. ENT: No nasal bleeding or discharge. Mucous membranes pink and moist. NECK: Trachea midline. CARDIOVASCULAR: Regular rate and rhythm. RESPIRATORY: No accessory muscle use. Clear to auscultation. Breath sounds equal bilaterally. GASTROINTESTINAL: Abdomen soft, non-tender, nondistended. Positive bowel sounds. MUSCULOSKELETAL: Extremities without clubbing, cyanosis, or edema. Left lower extremity with immobilizer in place, trace edema noted down to the foot. Positive pedal pulses. + Movement, sensation. Denies any numbness or tingling. NEUROLOGICAL: Awake and alert. No obvious cranial nerve deficits. Motor grossly within normal limits. Normal speech. PSYCHIATRIC: Appropriate mood and affect; insight and judgment normal. Results - Labs CBC & Chem 7: 08/17/18 06:46 08/17/18 06:46 Laboratory Results - last 24 hr 08/16/18 08/17/18 08/17/18 09:09 06:46 06:46 Hgb 7.4 L Hct 22.7 L Sodium 136 Potassium 3.9 Chloride 102 Carbon Dioxide 23.8 Anion Gap 10 BUN 4 L Creatinine 0.53 Estimated GFR Greater than 89 Random Glucose 80 Calcium 8.0 L Total Bilirubin 0.8 AST 96 H ALT 29 Alkaline Phosphatase 131 H Total Protein 6.6 D Albumin 2.4 L D MTS Gel Crossmatch See Detail - Imaging Impressions Tibia/Fibula X-Ray 08/16/18 00:00 CONCLUSION: Slight improvement of the alignment of the previously noted proximal tibial and fibular fractures with only very slight persistent displacement of the tibial fracture. Assessment and Plan - Plan This is a 52-year-old female with a history of alcohol abuse, asthma and chronic right hip pain. Patient presents to the emergency department because of acute left leg pain s/p fall. Tib-fib x-ray shows acute displaced comminuted fracture involving the left proximal tibia. Acute displaced comminuted left tibial fracture s/p fall. -Lower extremity CT with acute comminuted mildly displaced fractures involving the proximal tibia and fibula are noted. The proximal tibial fracture extends to the articular surface in the region of the intercondylar eminence. Moderate- sized suprapatellar knee joint effusion. - Knee CT acute displaced comminuted fracture involving the left proximal tibial shaft which extends superiorly into the region of the intercondylar tubercle and involves the articular surface. There is also an acute comminuted fracture involving the proximal fibula. Once again moderate size suprapatellar effusion demonstrates a fat-fluid level. -Orthopedic services consulted, patient is status post reduction with external fixation 08/[address] Brina. Plans for surgery once again early next week when swelling improved. -Calcium/vitamin D supplementation, PT consult nonweightbearing to left lower extremity -Pain control with p.o. [place], morphine for breakthrough pain. Attempt p.o. [place] if ongoing nausea and vomiting trial of Percocet. Microcytic anemia with suspected GI bleed Iron studies consistent SUSAN -H&H 7.4/22.7 this morning, transfused with 1 unit of PRBCs -Concerns for GI bleed secondary to reports of dark stools and overuse of NSAIDs -Gastroenterology consulted, appreciate recommendations. -Clear liquid diet keep hemoglobin greater than 8, Protonix drip, endoscopy in the next day or 2 per GI. - Check occult blood in stool, follow H&H Alcohol abuse with elevated AST -Serum alcohol level on admission 277 -CIWA -Alcohol cessation encouraged -Mild hyponatremia improved, mild hypokalemia. 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
[2018-08-17] MEDS ORDERED: Sodium Chlor 0.9% Inj 250 ML IV.SIG SCH (10:00)
[2018-08-17] MEDS: Ketorolac Inj 30 MG/ML (IVP) Vial IV.PUSH SCH ×2 (10:48→23:50)
[2018-08-17] MEDS: Enoxaparin Inj 30 MG/0.3 ML Syringe SQ SCH ×2 (13:17→21:25)
[2018-08-17] MEDS: Ferrous Sulfate 325 MG Tablet PO SCH ×2 (13:19→17:40)
[2018-08-17 20:43] LABS: Hematocrit 25.8 % (35.0-46.0); Hemoglobin 8.4 gm/dL (11.6-15.3)
[2018-08-18] MEDS: Morphine Inj 4 MG/ML Vial IV.PUSH PRN ×6 (01:12→23:26)
[2018-08-18] MEDS: Sod Chloride 0.9% Inj 1,000 ML IV.CONT SCH ×3 (04:09→18:59)
[2018-08-18 08:31] LABS: Hematocrit 26.7 % (35.0-46.0); Hemoglobin 8.6 gm/dL (11.6-15.3)
[2018-08-18] MEDS: Multivitamin/Minerals Therapeutic Tablet PO SCH (08:55)
[2018-08-18] MEDS: Folic Acid 1 MG Tablet PO SCH (08:55)
[2018-08-18] MEDS: Calcium/Vitamin D 250/125 MG Tablet PO SCH ×3 (08:55→19:01)
[2018-08-18] MEDS: Senna/Docusate Sodium 8.6/50 MG Tablet PO SCH ×2 (08:55→21:40)
--- NOTE | 2018-08-18 09:00 | P.PN ---
Subjective Interval history: Follow-up visit for left tibial fracture, and anemia likely due to GI bleed. Patient seen and examined in bed with RN at bedside. Reports some ongoing nausea and vomiting, only had Jell-O for dinner yesterday. Discussed with patient drop in hemoglobin, status post 1 unit of PRBCs with improvement in H& H. Patient does report some dizziness especially since she has been in bed. Reports that dizziness and lightheadedness had been going on 2 weeks prior to her fall, likely due to severe anemia. No reports fevers, shortness of breath, dysuria or diarrhea, positive flatus. Left leg swelling about the same, pain controlled with oral and IV medications. Physical Exam Vital signs: Vital Signs 08/17/18 12:00 08/17/18 16:00 08/17/18 16:22 Temperature 98.4 F 98.1 F 98.1 F Pulse Rate 84 86 86 Respiratory Rate 18 16 16 Blood Pressure 128/68 182/86 H 182/86 H Pulse Oximetry 96 99 99 08/17/18 19:00 08/17/18 19:10 08/17/18 20:00 Temperature 98.4 F 98.4 F Pulse Rate 102 H 102 H 79 Respiratory Rate 18 18 Blood Pressure 118/55 L 118/55 L Pulse Oximetry 97 08/17/18 23:10 08/17/18 23:45 08/17/18 23:50 Temperature 97.9 F Pulse Rate 93 H 86 Respiratory Rate 18 18 Blood Pressure 141/75 H Pulse Oximetry 95 08/18/18 03:55 08/18/18 04:10 08/18/18 05:10 Temperature 97.7 F Pulse Rate 91 H Respiratory Rate 18 18 18 Blood Pressure 148/72 H Pulse Oximetry 96 Intake & Output 08/17/18 08/18/18 08/18/18 18:59 06:59 18:59 Intake Total 1959 1460 / 1460 Balance 1959 1460 / 1460 Weight 69.9 kg Intake: IV 1000 / 1000 1000 / 1000 NS Inj 1,000 ML @ 125 mls/hr IV 1000 / 1000 1000 / 1000 .CONT .Q8H [facility] Rx#:[id number] Oral 960 / 960 360 / 360 Other 100 / 100 Rbc As-3 Leukoreduced Unit 100 / 100 [id number] Intake (Blood Product) Amt 0 / 0 0 / 0 Rbc As-3 Leukoreduced Unit 0 / 0 0 / 0 [id number] Other: # Voids 2 1 Date of Last Bowel Movement 08/16/18 # Bowel Movements 0 Narrative: GENERAL: Well-developed, well-nourished in no distress SKIN: Warm and dry. Facial and chest hemangioma. HEAD: Atraumatic. Normocephalic. EYES: Pupils equal and round. No scleral icterus. ENT: No nasal bleeding or discharge. Mucous membranes pink and moist. NECK: Trachea midline. CARDIOVASCULAR: Regular rate and rhythm. RESPIRATORY: No accessory muscle use. Clear to auscultation. Breath sounds equal bilaterally. GASTROINTESTINAL: Abdomen soft, non-tender, nondistended. Positive bowel sounds. MUSCULOSKELETAL: Extremities without clubbing, cyanosis, or edema. Left lower extremity with immobilizer in place, trace edema noted down to the foot. Positive pedal pulses. + Movement, sensation. Denies any numbness or tingling. NEUROLOGICAL: Awake and alert. No obvious cranial nerve deficits. Motor grossly within normal limits. Normal speech. PSYCHIATRIC: Appropriate mood and affect; insight and judgment normal. Results - Labs CBC & Chem 7: 08/19/18 05:44 08/17/18 06:46 Laboratory Results - last 24 hr 08/16/18 08/17/18 08/17/18 09:09 09:33 20:33 Hgb 8.4 L Hct 25.8 L MTS Gel Crossmatch See Detail See Detail 08/18/18 06:38 Hgb 8.6 L Hct 26.7 L MTS Gel Crossmatch Assessment and Plan - Plan This is a 52-year-old female with a history of alcohol abuse, asthma and chronic right hip pain. Patient presents to the emergency department because of acute left leg pain s/p fall. Tib-fib x-ray shows acute displaced comminuted fracture involving the left proximal tibia. Acute displaced comminuted left tibial fracture s/p fall. -Lower extremity CT with acute comminuted mildly displaced fractures involving the proximal tibia and fibula are noted. The proximal tibial fracture extends to the articular surface in the region of the intercondylar eminence. Moderate- sized suprapatellar knee joint effusion. - Knee CT acute displaced comminuted fracture involving the left proximal tibial shaft which extends superiorly into the region of the intercondylar tubercle and involves the articular surface. There is also an acute comminuted fracture involving the proximal fibula. Once again moderate size suprapatellar effusion demonstrates a fat-fluid level. -Orthopedic services consulted, patient is status post reduction with external fixation 08/[address] Brian. Plans for surgery once again early next week when swelling improved. -Calcium/vitamin D supplementation, PT consult nonweightbearing to left lower extremity -Pain control with p.o. [place], morphine for breakthrough pain. Microcytic anemia with suspected GI bleed Iron studies consistent SUSAN -drop in H&H 7.4/22.7-->[place] PRBC's-->8.4/25.8 -Concerns for GI bleed secondary to reports of dark stools and overuse of NSAIDs -Gastroenterology consulted, appreciate recommendations. -Clear liquid diet keep hemoglobin greater than 8, Protonix drip, endoscopy in the next day or 2 per GI. - Check occult blood in stool, follow H&H Alcohol abuse with elevated AST -Serum alcohol level on admission 277 -CIWA -Alcohol cessation encouraged -Mild hyponatremia improved, mild hypokalemia. 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
--- NOTE | 2018-08-18 09:20 | P.PNOP ---
Subjective Interval history: Pain moderately controlled on IV and oral medications. No new leg complaints. Questions about surgery. Urinating. Appetite ok. Physical Exam Vital signs: Vital Signs 08/17/18 12:00 08/17/18 16:00 08/17/18 16:22 Temperature 98.4 F 98.1 F 98.1 F Pulse Rate 84 86 86 Respiratory Rate 18 16 16 Blood Pressure 128/68 182/86 H 182/86 H Pulse Oximetry 96 99 99 08/17/18 19:00 08/17/18 19:10 08/17/18 20:00 Temperature 98.4 F 98.4 F Pulse Rate 102 H 102 H 79 Respiratory Rate 18 18 Blood Pressure 118/55 L 118/55 L Pulse Oximetry 97 08/17/18 23:10 08/17/18 23:45 08/17/18 23:50 Temperature 97.9 F Pulse Rate 93 H 86 Respiratory Rate 18 18 Blood Pressure 141/75 H Pulse Oximetry 95 08/18/18 03:55 08/18/18 04:10 08/18/18 05:10 Temperature 97.7 F Pulse Rate 91 H Respiratory Rate 18 18 18 Blood Pressure 148/72 H Pulse Oximetry 96 Intake & Output 08/17/18 08/18/18 08/18/18 18:59 06:59 18:59 Intake Total 1959 1460 / 1460 Balance 1959 1460 / 1460 Weight 69.9 kg Intake: IV 1000 / 1000 1000 / 1000 NS Inj 1,000 ML @ 125 mls/hr IV 1000 / 1000 1000 / 1000 .CONT .Q8H [facility] Rx#:[id number] Oral 960 / 960 360 / 360 Other 100 / 100 Rbc As-3 Leukoreduced Unit 100 / 100 [id number] Intake (Blood Product) Amt 0 / 0 0 / 0 Rbc As-3 Leukoreduced Unit 0 / 0 0 / 0 [id number] Other: # Voids 2 1 Date of Last Bowel Movement 08/16/18 # Bowel Movements 0 Narrative: Sitting up in bed NAD With RN at bedside LLE Ex fix in place, pin sites dressed, mild to moderate swelling knee and mid lower leg No erythema, no new drainage from pin sites Wiggles toes, AT intact, +sens, +nvi Results - Labs CBC & Chem 7: 08/18/18 06:38 08/17/18 06:46 Laboratory Results - last 24 hr 08/16/18 08/17/18 08/17/18 09:09 09:33 20:33 Hgb 8.4 L Hct 25.8 L MTS Gel Crossmatch See Detail See Detail 08/18/18 06:38 Hgb 8.6 L Hct 26.7 L MTS Gel Crossmatch Assessment and Plan - Assessment and Plan Left proximal tibia shaft and plateau fracture status post reduction with external fixation POD #2 Ortho stable. Pain only moderately controlled. Ice and elevation Pin care twice daily Calcium and vitamin D supplementation Physical therapy consult--nonweightbearing SCDs, Franco Roblero Dr. to consider ORIF next week pending swelling
[2018-08-18] MEDS: Enoxaparin Inj 30 MG/0.3 ML Syringe SQ SCH ×2 (09:26→21:41)
[2018-08-18] MEDS: Pantoprazole Inj 80 MG in Sodium Chlor 0.9% Inj 100 ML IV.CONT SCH (10:24)
[2018-08-18] MEDS: Ferrous Sulfate 325 MG Tablet PO SCH ×2 (12:43→19:00)
[2018-08-19] MEDS ORDERED: Chlorhexidine Gluconate 2% 1 Pack (2 Cloths) TOPICAL ONE (03:28)
[2018-08-19] MEDS ORDERED: Sodium Chlor 0.9% Inj 500 ML IV.SIG SCH (04:00)
[2018-08-19] MEDS: Sod Chloride 0.9% Inj 1,000 ML IV.CONT SCH ×3 (04:26→17:13)
[2018-08-19 06:54] LABS: Hematocrit 28.3 % (35.0-46.0); Hemoglobin 9.3 gm/dL (11.6-15.3)
--- NOTE | 2018-08-19 07:56 | P.PN ---
Subjective Interval history: Follow-up visit for left tibial fracture, and anemia possibly due to GI bleed. Patient is seen and examined in bed appears to be in no acute distress. Reports some nausea but no vomiting, has been able to drink fluids as well as eat Jell-O with meals. Denies any fevers, chills, cough, shortness of breath or chest pain. Continues to complain of left leg pain. Physical Exam Vital signs: Vital Signs 08/18/18 08:00 08/18/18 12:00 08/18/18 16:00 Temperature 97.6 F 97.7 F 98.8 F Pulse Rate 85 88 87 Respiratory Rate 18 18 18 Blood Pressure 135/72 149/76 H 150/72 H Pulse Oximetry 98 99 100 08/18/18 20:00 08/18/18 21:41 08/18/18 23:25 Temperature 98.6 F Pulse Rate 83 Respiratory Rate 20 12 18 Blood Pressure 165/81 H Pulse Oximetry 100 08/19/18 00:00 08/19/18 04:00 Temperature 98.3 F 98.1 F Pulse Rate 88 100 H Respiratory Rate 20 20 Blood Pressure 142/73 H 148/68 H Pulse Oximetry 97 95 Intake & Output 08/18/18 08/19/18 08/19/18 18:59 06:59 18:59 Intake Total 1480 / 1480 100 / 100 Balance 1480 / 1480 100 / 100 Weight 76.3 kg Intake: IV 1000 / 1000 100 / 100 Protonix Inj 80 MG In NS Inj 100 / 100 100 ML @ 10 mls/hr IV.CONT CONT [facility] Rx#:[id number] NS Inj 1,000 ML @ 125 mls/hr IV 1000 / 1000 .CONT .Q8H [facility] Rx#:[id number] Oral 480 / 480 0 / 0 Other: # Voids 2 2 Date of Last Bowel Movement 08/18/18 08/18/18 Narrative: GENERAL: Well-developed, well-nourished in no distress SKIN: Warm and dry. Facial and chest hemangioma. HEAD: Atraumatic. Normocephalic. EYES: Pupils equal and round. No scleral icterus. ENT: No nasal bleeding or discharge. Mucous membranes pink and moist. NECK: Trachea midline. CARDIOVASCULAR: Regular rate and rhythm. RESPIRATORY: No accessory muscle use. Clear to auscultation. Breath sounds equal bilaterally. GASTROINTESTINAL: Abdomen soft, non-tender, nondistended. Positive bowel sounds. MUSCULOSKELETAL: Extremities without clubbing, cyanosis, or edema. Left lower extremity with immobilizer in place, edema slightly improved. Positive pedal pulses. + Movement, sensation. Denies any numbness or tingling. NEUROLOGICAL: Awake and alert. No obvious cranial nerve deficits. Motor grossly within normal limits. Normal speech. PSYCHIATRIC: Appropriate mood and affect; insight and judgment normal. Results - Labs CBC & Chem 7: 08/19/18 05:44 08/17/18 06:46 Laboratory Results - last 24 hr 08/18/18 08/19/18 06:38 05:44 Hgb 8.6 L 9.3 L Hct 26.7 L 28.3 L Assessment and Plan - Plan This is a 52-year-old female with a history of alcohol abuse, asthma and chronic right hip pain. Patient presents to the emergency department because of acute left leg pain s/p fall. Tib-fib x-ray shows acute displaced comminuted fracture involving the left proximal tibia. Acute displaced comminuted left tibial fracture s/p fall. -Lower extremity CT with acute comminuted mildly displaced fractures involving the proximal tibia and fibula are noted. The proximal tibial fracture extends to the articular surface in the region of the intercondylar eminence. Moderate- sized suprapatellar knee joint effusion. - Knee CT acute displaced comminuted fracture involving the left proximal tibial shaft which extends superiorly into the region of the intercondylar tubercle and involves the articular surface. There is also an acute comminuted fracture involving the proximal fibula. Once again moderate size suprapatellar effusion demonstrates a fat-fluid level. -Orthopedic services consulted, patient is status post reduction with external fixation 08/[address] Brian. Plans for surgery once again early next week when swelling improved. -Calcium/vitamin D supplementation, PT consult nonweightbearing to left lower extremity -Pain control with p.o. [place], morphine for breakthrough pain. Microcytic anemia with suspected GI bleed Iron studies consistent SUSAN -drop in H&H 7.4/22.7-->[place] PRBC's-->8.4/25.8, H&H stable -Concerns for GI bleed secondary to reports of dark stools and overuse of NSAIDs -Gastroenterology consulted, appreciate recommendations. -Clear liquid diet keep hemoglobin greater than 8, Protonix drip, GI with plans of scope after ortho procedures. - Check occult blood in stool when she has BM, follow H&H Alcohol abuse with elevated AST -Serum alcohol level on admission 277 -CIWA -Alcohol cessation encouraged -Mild hyponatremia improved, mild hypokalemia. 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
[2018-08-19] MEDS: Enoxaparin Inj 30 MG/0.3 ML Syringe SQ SCH ×2 (09:03→21:17)
[2018-08-19] MEDS: Morphine Inj 4 MG/ML Vial IV.PUSH PRN ×4 (09:03→23:31)
[2018-08-19] MEDS: Folic Acid 1 MG Tablet PO SCH (09:04)
[2018-08-19] MEDS: Calcium/Vitamin D 250/125 MG Tablet PO SCH ×3 (09:04→18:21)
[2018-08-19] MEDS: Multivitamin/Minerals Therapeutic Tablet PO SCH (09:04)
[2018-08-19] MEDS: Senna/Docusate Sodium 8.6/50 MG Tablet PO SCH ×2 (09:04→21:35)
[2018-08-19] MEDS: Ferrous Sulfate 325 MG Tablet PO SCH ×2 (14:24→18:21)
[2018-08-19] MEDS: Pantoprazole Inj 80 MG in Sodium Chlor 0.9% Inj 100 ML IV.CONT SCH (18:21)
[2018-08-20] MEDS: Sod Chloride 0.9% Inj 1,000 ML IV.CONT SCH ×2 (02:12→18:28)
[2018-08-20] MEDS: Morphine Inj 4 MG/ML Vial IV.PUSH PRN ×6 (03:10→22:01)
[2018-08-20] MEDS: Pantoprazole Inj 80 MG in Sodium Chlor 0.9% Inj 100 ML IV.CONT SCH ×2 (03:10→14:37)
--- NOTE | 2018-08-20 06:35 | P.PNOP ---
Subjective Interval history: s/p exfix of left proximal tibia fx no changes Physical Exam Vital signs: Vital Signs 08/19/18 08:00 08/19/18 11:40 08/19/18 12:00 Temperature 99.3 F 98.0 F Pulse Rate 91 H 101 H Respiratory Rate 16 16 Blood Pressure 159/70 H 118/81 Pulse Oximetry 94 L 97 98 08/19/18 16:00 08/19/18 20:00 08/19/18 20:05 Temperature 99.3 F 100 F H Pulse Rate 104 H 110 H 95 H Respiratory Rate 16 20 Blood Pressure 136/67 133/75 Pulse Oximetry 97 99 08/20/18 00:00 08/20/18 04:00 Temperature 100.5 F H 99 F Pulse Rate 101 H 91 H Respiratory Rate 20 20 Blood Pressure 127/62 111/58 L Pulse Oximetry 95 96 Intake & Output 08/19/18 08/19/18 08/20/18 06:59 18:59 06:59 Intake Total 100 / 100 100 / 100 Balance 100 / 100 100 / 100 Weight 76.3 kg 76.3 kg Intake: IV 100 / 100 100 / 100 Protonix Inj 80 MG In NS Inj 100 / 100 100 / 100 100 ML @ 10 mls/hr IV.CONT CONT [facility] Rx#:[id number] Oral 0 / 0 Other: # Voids 2 3 Date of Last Bowel Movement 08/18/18 08/19/18 # Bowel Movements 1 Narrative: LLE: 2+ swelling of lower leg. nvi distally. exfix in place with pin sites clean and dry Results - Labs CBC & Chem 7: 08/19/18 05:44 08/17/18 06:46 Laboratory Results - last 24 hr 08/19/18 05:44 Hgb 9.3 L Hct 28.3 L Microbiology 08/19/18 18:05 Stool Stool Occult Blood (ALYSSIA) - Final Hemoccult negative Assessment and Plan - Assessment and Plan Left proximal tibia shaft and plateau fracture status post reduction with external fixation Ortho stable. Pain only moderately controlled. Ice and elevation Pin care twice daily Calcium and vitamin D supplementation Physical therapy consult--nonweightbearing SCDs, SAMMIE hose, swelling still too great for surgery. hopefully tomorrow restart diet and npo after MN DC lovenox after AM dose
[2018-08-20 07:23] LABS: Anion Gap 15 meq/L (5-15); Blood Urea Nitrogen 3 mg/dL (7-18); Calcium 7.8 mg/dL (8.5-10.1); Carbon Dioxide 26.5 meq/L (21.0-32.0); Chloride 97 meq/L (98-107); Glomerular Filtration Rate Greater Than 89 mL/min (>89); Glucose,Random 91 mg/dL (74-106); Sodium 138 meq/L (136-145)
[2018-08-20 07:32] LABS: Potassium 2.6 meq/L (3.5-5.1)
[2018-08-20] MEDS: Senna/Docusate Sodium 8.6/50 MG Tablet PO SCH ×2 (09:41→22:01)
[2018-08-20] MEDS: Calcium/Vitamin D 250/125 MG Tablet PO SCH ×3 (09:42→17:24)
[2018-08-20] MEDS: Folic Acid 1 MG Tablet PO SCH (09:42)
[2018-08-20] MEDS: Multivitamin/Minerals Therapeutic Tablet PO SCH (09:42)
[2018-08-20] MEDS: Enoxaparin Inj 30 MG/0.3 ML Syringe SQ SCH (09:51)
--- NOTE | 2018-08-20 11:22 | P.PNIM ---
Subjective Interval history: Having some watery stools tolerating clear liquid diet. Overall pain controlled. Waiting for swelling to go down. Physical Exam Vital signs: Vital Signs 08/19/18 11:40 08/19/18 12:00 08/19/18 16:00 Temperature 98.0 F 99.3 F Pulse Rate 101 H 104 H Respiratory Rate 16 16 Blood Pressure 118/81 136/67 Pulse Oximetry 97 98 97 08/19/18 20:00 08/19/18 20:05 08/20/18 00:00 Temperature 100 F H 100.5 F H Pulse Rate 110 H 95 H 101 H Respiratory Rate 20 20 Blood Pressure 133/75 127/62 Pulse Oximetry 99 95 08/20/18 04:00 08/20/18 08:00 Temperature 99 F 97.8 F Pulse Rate 91 H 82 Respiratory Rate 20 16 Blood Pressure 111/58 L 140/63 Pulse Oximetry 96 98 Intake & Output 08/19/18 08/20/18 08/20/18 18:59 06:59 18:59 Intake Total 100 / 100 Balance 100 / 100 Weight 76.3 kg Intake: IV 100 / 100 Protonix Inj 80 MG In NS Inj 100 / 100 100 ML @ 10 mls/hr IV.CONT CONT [facility] Rx#:[id number] Other: # Voids 3 Date of Last Bowel Movement 08/19/18 # Bowel Movements 1 Narrative: GENERAL: This is a thin, well-developed patient, in no apparent distress. CARDIOVASCULAR: Regular rate and rhythm RESPIRATORY: Clear to auscultation. Breath sounds equal bilaterally. No wheezes , rales, or rhonchi. GASTROINTESTINAL: Abdomen soft, non-tender, nondistended. Normal active bowel sounds MUSCULOSKELETAL: Left lower extremity external fixator in place, 1-2+ edema NEURO: Alert & Oriented x4 to person, place, time, situation. Moves all ext x4 Results - Labs CBC & Chem 7: 08/19/18 05:44 08/20/18 05:57 Laboratory Results - last 24 hr 08/20/18 05:57 Sodium 138 Potassium 2.6 L* Chloride 97 L Carbon Dioxide 26.5 Anion Gap 15 BUN 3 L Creatinine 0.51 Estimated GFR Greater than 89 Random Glucose 91 Calcium 7.8 L Microbiology 08/19/18 18:05 Stool Stool Occult Blood (ALYSSIA) - Final Hemoccult negative Assessment and Plan - Plan This is a 52-year-old female with a history of alcohol abuse, asthma and chronic right hip pain. Patient presents to the emergency department because of acute left leg pain s/p fall. Tib-fib x-ray shows acute displaced comminuted fracture involving the left proximal tibia. 1. Acute displaced comminuted left tibial fracture s/p fall. -Patient is status post reduction with external fixation 08/[address] Brian. Plans for surgery possibly for tomorrow depending on swelling. -Calcium/vitamin D supplementation, PT consult nonweightbearing to left lower extremity -Pain control with p.o. [place], morphine for breakthrough pain. 2. Microcytic anemia with suspected GI bleed Iron studies consistent SUSAN -drop in H&H 7.4/22.7-->[place] PRBC's-->8.4/25.8, H&H has been stable since transfusion -Concerns for GI bleed secondary to reports of dark stools and overuse of NSAIDs -Gastroenterology consulted, appreciate recommendations. Hemoccult stool negative - advance diet and consideration for scope after orthopedic procedure. Will defer to GI. 3. History of alcohol abuse with elevated AST -Serum alcohol level on admission 277 -CIWA -Alcohol cessation encouraged 4. Hypokalemiareplete check magnesium level 5. Hypertension -Denies past medical history of hypertension -PRN clonidine 6. DVT prophylaxis-Per orthopedic services, subcu Lovenox on hold due to suspected GI bleed and drop in hemoglobin.
[2018-08-20] MEDS: Ferrous Sulfate 325 MG Tablet PO SCH ×2 (12:18→17:24)
[2018-08-21] MEDS: Pantoprazole Inj 80 MG in Sodium Chlor 0.9% Inj 100 ML IV.CONT SCH (01:01)
[2018-08-21] MEDS: Morphine Inj 4 MG/ML Vial IV.PUSH PRN ×3 (01:01→12:22)
[2018-08-21] MEDS: Sod Chloride 0.9% Inj 1,000 ML IV.CONT SCH ×3 (04:34→17:03)
--- NOTE | 2018-08-21 06:44 | P.PNOP ---
Subjective Interval history: Pain is controlled. Patient is anxious for surgery Physical Exam Vital signs: Vital Signs 08/20/18 08:00 08/20/18 12:00 08/20/18 16:00 Temperature 97.8 F 98.0 F 97.9 F Pulse Rate 82 88 82 Respiratory Rate 16 18 15 Blood Pressure 140/63 139/78 134/73 Pulse Oximetry 98 99 96 08/20/18 20:00 08/20/18 23:29 08/21/18 00:00 Temperature 97.5 F L 98.2 F Pulse Rate 77 73 Respiratory Rate 20 15 17 Blood Pressure 157/71 H 148/72 H Pulse Oximetry 99 98 08/21/18 04:00 Temperature 98 F Pulse Rate 91 H Respiratory Rate 20 Blood Pressure 159/77 H Pulse Oximetry 98 Intake & Output 08/20/18 08/20/18 08/21/18 06:59 18:59 06:59 Intake Total 100 / 100 1060 / 1060 100 / 100 Balance 100 / 100 1060 / 1060 100 / 100 Weight 76.3 kg Intake: IV 100 / 100 100 / 100 100 / 100 Protonix Inj 80 MG In NS Inj 100 / 100 100 / 100 100 / 100 100 ML @ 10 mls/hr IV.CONT CONT [facility] Rx#:[id number] Oral 960 / 960 Other: # Voids 3 2 Date of Last Bowel Movement 08/19/18 08/20/18 08/20/18 # Bowel Movements 1 2 Narrative: Left lower extremity: External fixator in place. Pin sites clean and dry. Improved swelling but still +2. Intact sensation distally with active dorsiflexion plantar flexion of foot. Some skin irritation over the anterior tibia pressure of the fracture and abrasions Results - Labs CBC & Chem 7: 08/19/18 05:44 08/20/18 05:57 Laboratory Results - last 24 hr 08/20/18 08/20/18 05:57 12:00 Sodium 138 Potassium 2.6 L* Chloride 97 L Carbon Dioxide 26.5 Anion Gap 15 BUN 3 L Creatinine 0.51 Estimated GFR Greater than 89 Random Glucose 91 Calcium 7.8 L Magnesium 1.6 Assessment and Plan - Assessment and Plan Left proximal tibia shaft and plateau fracture status post reduction with external fixation Ortho stable. Pain only moderately controlled. Ice and elevation Pin care twice daily Calcium and vitamin D supplementation Physical therapy consult--nonweightbearing SCDs, SAMMIE ruiz, Surgery this morning with Dr. Brian npo Hold [facility]
[2018-08-21] MEDS ORDERED: ceFAZolin 2 GM Premix Inj 2 GM/50 ML PIGGYBACK IV.SIG ONE (07:07)
[2018-08-21] MEDS ORDERED: Famotidine PF Inj 20 MG/2 ML Vial ONE (07:33)
[2018-08-21] MEDS ORDERED: Succinylcholine Inj 100 MG/5 ML Syringe IV.PUSH ONE (07:42)
[2018-08-21] MEDS ORDERED: Lidocaine PF 1% Inj 5 ML Syringe OTHER ONE (07:42)
[2018-08-21] MEDS ORDERED: Post-op Orders (for Pharmacy) OTHER STA (08:58)
[2018-08-21] MEDS: Calcium/Vitamin D 250/125 MG Tablet PO SCH ×3 (09:00→17:21)
[2018-08-21] MEDS: Senna/Docusate Sodium 8.6/50 MG Tablet PO SCH ×2 (09:00→20:31)
[2018-08-21] MEDS ORDERED: Enoxaparin Inj 30 MG/0.3 ML Syringe SQ SCH (09:00)
--- NOTE | 2018-08-21 09:03 | P.OP ---
- Preoperative Diagnosis (1) Closed bicondylar fracture of left tibial plateau Date of procedure: 08/21/18 Procedure: Open reduction internal fixation left bicondylar tibial plateau fracture, removal of external fixation Anesthesia: GETA Surgeon: Murphy Hernandez MD Assistant Coach: MARISSA Chauhan PA-C The surgical procedure was assisted by my physician assistant manager airside operations. My P.A. presence was necessary throughout this case for the manipulation and positioning of the surgical extremity. My P.A. was assisting me throughout the duration of this procedure. The skill set of a physician assistant manager airside operations was medically necessary to complete this procedure. During the surgical case the certified surgical tech/first assistant was working at the back table and the physician assistant manager airside operations was directly assisting me. Operation and Findings: Implants used: Synthes Plan of activity: Nonweightbearing, no quad sets This patient was seen and evaluated preoperatively. Patient sustained an injury resulting a left bicondylar tibial plateau fracture. Informed consent was obtained preoperatively after detailed discussion of the risks and benefits of surgery. Risk of surgery including bleeding, infection, nonunion, painful hardware, stiffness, loss of motion, arthritis, need for knee replacement, as well as medical complications including blood clots, stroke, heart attack, and were discussed. I also discussed the possibility of using allograft bone graft . Preoperatively the operative site was marked. Patient was brought to the operating room and placed on the operating room table. Intravenous sedation and general endotracheal anesthesia were administered. IV antibiotics were given and a time out procedure was preformed. Procedure began with a removal of a portion of the external fixator. Clamps were loosened. Clamps and bars were removed. The pins were left in place. The operative leg was prepped with alcohol followed by Hibiclens and draped in the usual sterile fashion. Procedure began with a 3-inch curvilinear incision over the anterolateral knee. Subcutaneous tissue was treated with Bovie. Iliotibial band was split in line with fibers. A percutaneous technique was used for plate placement. Traction was applied. Fracture was manipulated. A fracture tenaculum was used to compress the medial and lateral tibial plateau fragments. A second clamp was used to help reduce the metaphyseal fractures. Fluoroscopy revealed excellent alignment of fracture. A proximal tibial plate was selected. The plate was provisionally held with K-wires. 3.5 cortical screws were used compress plate to bone distally, and a periarticular clamp was used to compress the medial and lateral tibial plateau fracture fragments together. Multiple locking screws were now placed proximally. Additional screws were placed in the shaft. K- wires were removed. Final fluoroscopy showed excellent alignment of fracture with well-placed hardware. The incision was thoroughly irrigated. Arthrotomy and iliotibial band closed with #1 Vicryl,. Subcutaneous tissues closed with 3- 0 Vicryl and skin was closed with kamille. The external fixation pins were now removed. Sterile dressings were applied. The patient was transferred to recovery in stable condition.
[2018-08-21] MEDS: Ketorolac Inj 30 MG/ML (IVP) Vial IV.PUSH SCH ×2 (09:20→17:21)
[2018-08-21] MEDS ORDERED: fentaNYL Citrate Inj 100 MCG/2 ML Ampul ONE (09:26)
[2018-08-21] MEDS ORDERED: Labetalol HCl Inj 100 MG/20 ML Vial ONE (09:27)
[2018-08-21] MEDS ORDERED: HYDROmorphone PF Inj 2 MG/ML Vial IV.PUSH PRN (09:42)
--- NOTE | 2018-08-21 11:08 | XR ---
EXAM DATE: 08/21/2018 12:00 AM EDT AGE/SEX: 52 years / Female INDICATIONS: ORIF left tibia fracture. CLINICAL DATA: This is the patient's subsequent encounter. Patient reports that signs and symptoms h ave been present for 4 - 6 days and indicates a pain score of Nonresponsive. MEDICAL/SURGICAL HISTORY: Non-responsive. Non-responsive. COMPARISON: C, TIBIA FIBULA LEFT 1V, 08/16/2018. . FINDINGS: 5 magnified C-arm spot views are centered over the proximal lower leg and are labeled left. There is an orthopedic plate along the lateral cortical margin of the proximal and mid tibia with multiple anc horing screws both proximally and distally. Good alignment of the proximal tibial fracture site noted . CONCLUSION: Limited images as detailed above. Electronically signed by: Krunal Nuno MD 08/21/2018 11:07 AM EDT
[2018-08-21] MEDS: Ferrous Sulfate 325 MG Tablet PO SCH ×2 (12:40→17:21)
--- NOTE | 2018-08-21 14:38 | P.PNIM ---
Subjective Interval history: Reports overall pain control. Happy she has the external fixator off now. Feeling hungry and ready to eat lunch. Physical Exam Vital signs: Vital Signs 08/20/18 16:00 08/20/18 20:00 08/20/18 23:29 Temperature 97.9 F 97.5 F L Pulse Rate 82 77 Respiratory Rate 15 20 15 Blood Pressure 134/73 157/71 H Pulse Oximetry 96 99 08/21/18 00:00 08/21/18 04:00 08/21/18 09:16 Temperature 98.2 F 98 F 97.8 F Pulse Rate 73 91 H 112 H Respiratory Rate 17 20 15 Blood Pressure 148/72 H 159/77 H Pulse Oximetry 98 98 100 08/21/18 09:17 08/21/18 09:19 08/21/18 09:30 Temperature Pulse Rate 112 H 111 H 82 Respiratory Rate 15 16 Blood Pressure 184/92 H 184/91 H 168/77 H Pulse Oximetry 100 100 100 08/21/18 09:45 08/21/18 12:00 08/21/18 12:22 Temperature 97.7 F 97.4 F L Pulse Rate 84 99 H Respiratory Rate 16 18 10 L Blood Pressure 164/77 H 180/84 H Pulse Oximetry 100 94 L Intake & Output 08/20/18 08/21/18 08/21/18 18:59 06:59 18:59 Intake Total 1060 / 1060 560 / 560 520 / 520 Output Total 100 / 100 Balance 1060 / 1060 560 / 560 420 / 420 Weight 73.7 kg Intake: IV 100 / 100 100 / 100 70 / 70 Protonix Inj 80 MG In NS Inj 100 / 100 100 / 100 70 / 70 100 ML @ 10 mls/hr IV.CONT CONT [facility] Rx#:[id number] Oral 960 / 960 460 / 460 Anesthesia Amount 450 / 450 Output: Estimated Blood Loss 100 / 100 Other: # Voids 2 2 Date of Last Bowel Movement 08/20/18 08/20/18 # Bowel Movements 2 Narrative: GENERAL: This is a well-nourished, well-developed patient, in no apparent distress. CARDIOVASCULAR: Regular rate and rhythm RESPIRATORY: Clear to auscultation. Breath sounds equal bilaterally. No wheezes , rales, or rhonchi. GASTROINTESTINAL: Abdomen soft, non-tender, nondistended. Normal active bowel sounds MUSCULOSKELETAL: Left lower extremity [place] bandage clean dry intact on NEURO: Alert & Oriented x4 to person, place, time, situation. Moves all ext x4 Results - Labs CBC & Chem 7: 08/19/18 05:44 08/20/18 05:57 - Imaging Impressions Knee X-Ray 08/21/18 00:00 CONCLUSION: Limited images as detailed above. Assessment and Plan - Plan This is a 52-year-old female with a history of alcohol abuse, asthma and chronic right hip pain. Patient presents to the emergency department because of acute left leg pain s/p fall. Tib-fib x-ray shows acute displaced comminuted fracture involving the left proximal tibia. 1. Acute displaced comminuted left tibial fracture s/p fall. -Patient is status post reduction with external fixation 08/[address] Brian. Status post today ORIF with external fixation removal with Dr. Brian. Continue postoperative care, pain control, physical therapy and bowel regimen. -Calcium/vitamin D supplementation, PT consult nonweightbearing to left lower extremity -Pain control with p.o. [place], morphine for breakthrough pain. 2. Microcytic anemia with suspected GI bleed Iron studies consistent SUSAN -Initial drop in H&H 7.4/22.7-->[place] PRBC's-->8.4/25.8, H&H has been stable since transfusion -Previous concerns for GI bleed secondary to reports of dark stools and overuse of NSAIDs -Gastroenterology consulted, appreciate recommendations. Hemoccult stool negative We will monitor hemoglobin postoperatively. Will switch Protonix drip to p.o. PPI and monitor. 3. History of alcohol abuse with elevated AST -Serum alcohol level on admission 277 -CIWA -Alcohol cessation encouraged No sign of alcohol withdrawal. 4. Hypokalemiareplete check magnesium level 5. Hypertension -Denies past medical history of hypertension -PRN clonidine 6. DVT prophylaxis-Per orthopedic services, subcu Lovenox restarted today after surgery, will need to monitor closely hemoglobin. Discharge Planning: Home when medically and surgically stable.
[2018-08-21] MEDS: ceFAZolin 2 GM Premix Inj 2 GM/50 ML PIGGYBACK IV.SIG SCH (15:31)
[2018-08-21] MEDS: Magnesium Oxide 400 MG Tablet PO SCH ×2 (15:42→20:32)
[2018-08-21] MEDS: Vancomycin Inj 1,000 MG in Sodium Chlor 0.9% Inj 250 ML IV.SIG SCH (19:23)
[2018-08-22] MEDS: Morphine Inj 4 MG/ML Vial IV.PUSH PRN ×2 (00:11→20:56)
[2018-08-22] MEDS: ceFAZolin 2 GM Premix Inj 2 GM/50 ML PIGGYBACK IV.SIG SCH ×3 (00:31→16:00)
[2018-08-22] MEDS: Ketorolac Inj 30 MG/ML (IVP) Vial IV.PUSH SCH ×2 (01:50→08:11)
--- NOTE | 2018-08-22 06:42 | P.PNOP ---
Subjective Interval history: POD 1 s/p ORIF left proximal tibia doing well. reports pain but controlled Physical Exam Vital signs: Vital Signs 08/21/18 09:16 08/21/18 09:17 08/21/18 09:19 Temperature 97.8 F Pulse Rate 112 H 112 H 111 H Respiratory Rate 15 15 Blood Pressure 184/92 H 184/91 H Pulse Oximetry 100 100 100 08/21/18 09:30 08/21/18 09:45 08/21/18 12:00 Temperature 97.7 F 97.4 F L Pulse Rate 82 84 99 H Respiratory Rate 17 16 18 Blood Pressure 168/77 H 164/77 H 180/84 H Pulse Oximetry 100 100 94 L 08/21/18 12:22 08/21/18 16:00 08/21/18 20:00 Temperature 97.6 F 97.9 F Pulse Rate 93 H 90 Respiratory Rate 10 L 18 20 Blood Pressure 160/86 H 155/71 H Pulse Oximetry 99 99 08/21/18 20:32 08/22/18 00:00 08/22/18 03:46 Temperature 98.0 F 98.6 F Pulse Rate 100 H 89 Respiratory Rate 14 18 15 Blood Pressure 157/74 H 153/66 H Pulse Oximetry 98 96 Intake & Output 08/21/18 08/21/18 08/22/18 06:59 18:59 06:59 Intake Total 560 / 560 570 / 570 1410 / 1410 Output Total 100 / 100 Balance 560 / 560 470 / 470 1410 / 1410 Weight 73.7 kg Intake: IV 100 / 100 120 / 120 250 / 250 Protonix Inj 80 MG In NS Inj 100 / 100 70 / 70 100 ML @ 10 mls/hr IV.CONT CONT [facility] Rx#:[id number] Vancomycin Inj 1,000 MG In NS 250 / 250 Inj 250 ML @ 250 mls/hr IV.SIG Q12H [facility] Rx#:[id number] Ancef 2 GM Premix Inj 2 gm In 50 / 50 50 ml @ 100 mls/hr IV.SIG Q8H [facility] Rx#:[id number] Oral 460 / 460 1160 / 1160 Anesthesia Amount 450 / 450 Output: Estimated Blood Loss 100 / 100 Other: # Voids 2 2 Date of Last Bowel Movement 08/20/18 08/20/18 Narrative: LLE: dressings clean and dry. intact. +CKS. NVI. strong dorsiflexion with minimal discomfort. compartments soft Results - Labs CBC & Chem 7: 08/19/18 05:44 08/20/18 05:57 - Imaging Impressions Knee X-Ray 08/21/18 00:00 CONCLUSION: Limited images as detailed above. Assessment and Plan - Assessment and Plan 1) Left Proximal Tibia Fx s/p ORIF - POD 1 -NWB -no quad sets or leg lifts -PROM 0-90deg -daily dressing changes POD 2 -CKS except for therapy -DVT prophylaxis -CM for DC planning. Home with [facility] vs SNF -f/u with [facility] or [facility] in 2 weeks [id number] Prescription Drug Monitoring Database has been queried and verified prior to prescribing the controlled substance. Acute pain exception. This patient has normal, predicted, physiological, and time limited response to an adverse mechanical stimulus associated with surgery, trauma, or acute illness as described in my notes. There is a lack of alternative treatment options other than to include the prescribed narcotic treatment for this condition.
[2018-08-22 07:05] LABS: Hematocrit 25.6 % (35.0-46.0); Hemoglobin 8.2 gm/dL (11.6-15.3); Mean Corpuscular HGB Conc 32.2 % (32.0-36.0); Mean Corpuscular Hemoglobin 26.7 pg (27.0-34.0); Mean Corpuscular Volume 82.9 fL (80.0-100.0); Platelet Count 157 th/mm3 (150-450); Red Blood Count 3.09 mil/mm3 (4.00-5.30); Red Cell Distribution Width 22.8 % (11.6-17.2); White Blood Count 5.3 th/mm3 (4.0-11.0)
[2018-08-22 07:11] LABS: Hematocrit 24.5 % (35.0-46.0); Hemoglobin 8.3 gm/dL (11.6-15.3)
[2018-08-22] MEDS: Sod Chloride 0.9% Inj 1,000 ML IV.CONT SCH ×3 (07:11→16:45)
[2018-08-22 07:32] LABS: Anion Gap 8 meq/L (5-15); Blood Urea Nitrogen 6 mg/dL (7-18); Calcium 8.3 mg/dL (8.5-10.1); Carbon Dioxide 25.7 meq/L (21.0-32.0); Chloride 99 meq/L (98-107); Glomerular Filtration Rate Greater Than 89 mL/min (>89); Glucose,Random 94 mg/dL (74-106); Potassium 3.7 meq/L (3.5-5.1); Sodium 133 meq/L (136-145)
[2018-08-22] MEDS: Vancomycin Inj 1,000 MG in Sodium Chlor 0.9% Inj 250 ML IV.SIG SCH (08:10)
[2018-08-22] MEDS: Calcium/Vitamin D 250/125 MG Tablet PO SCH ×3 (08:11→17:23)
[2018-08-22] MEDS: Magnesium Oxide 400 MG Tablet PO SCH ×2 (08:11→20:45)
[2018-08-22] MEDS: Enoxaparin Inj 30 MG/0.3 ML Syringe SQ SCH (08:12)
[2018-08-22] MEDS: Senna/Docusate Sodium 8.6/50 MG Tablet PO SCH ×2 (09:00→20:45)
[2018-08-22] MEDS: Ferrous Sulfate 325 MG Tablet PO SCH ×2 (12:00→17:23)
--- NOTE | 2018-08-22 12:29 | P.PN ---
Subjective Interval history: Patient doing well overnight. Reports that she is in pain but that it is well- tolerated with meds. Patient is tolerating p.o., voiding/stooling well. No overnight events per RN. Physical Exam Vital signs: Vital Signs 08/21/18 16:00 08/21/18 20:00 08/21/18 20:32 Temperature 97.6 F 97.9 F Pulse Rate 93 H 90 Respiratory Rate 18 20 14 Blood Pressure 160/86 H 155/71 H Pulse Oximetry 99 99 08/22/18 00:00 08/22/18 03:46 08/22/18 08:00 Temperature 98.0 F 98.6 F 97.9 F Pulse Rate 100 H 89 75 Respiratory Rate 18 15 18 Blood Pressure 157/74 H 153/66 H 154/70 H Pulse Oximetry 98 96 99 08/22/18 12:00 Temperature 98.1 F Pulse Rate 76 Respiratory Rate 18 Blood Pressure 133/59 L Pulse Oximetry 100 Intake & Output 08/21/18 08/22/18 08/22/18 18:59 06:59 18:59 Intake Total 570 / 570 1460 / 1460 Output Total 100 / 100 Balance 470 / 470 1460 / 1460 Intake: IV 120 / 120 300 / 300 Protonix Inj 80 MG In NS Inj 70 / 70 100 ML @ 10 mls/hr IV.CONT CONT [facility] Rx#:[id number] Vancomycin Inj 1,000 MG In NS 250 / 250 Inj 250 ML @ 250 mls/hr IV.SIG Q12H [facility] Rx#:[id number] Ancef 2 GM Premix Inj 2 gm In 50 / 50 50 / 50 50 ml @ 100 mls/hr IV.SIG Q8H [facility] Rx#:[id number] Oral 1160 / 1160 Anesthesia Amount 450 / 450 Output: Estimated Blood Loss 100 / 100 Other: # Voids 2 Date of Last Bowel Movement 08/20/18 08/20/18 Narrative: GENERAL: Well-nourished female, in NAD, lying comfortably in bed. SKIN: Warm and dry. HEAD: Normocephalic. EYES: No scleral icterus. No injection or drainage. NECK: Supple, trachea midline. No JVD or lymphadenopathy. CARDIOVASCULAR: Regular rate and rhythm without murmurs, gallops, or rubs. RESPIRATORY: Breath sounds equal bilaterally. No accessory muscle use. GASTROINTESTINAL: Abdomen soft, non-tender, nondistended. MUSCULOSKELETAL: No cyanosis or edema. Left LE with dressing in place. Motor strength 4/5 of LLE, 5/5 of all other extremities. BACK: Nontender without obvious deformity. No CVA tenderness. NEURO: No focal deficits, sensation intact to light touch x4 Results - Labs CBC & Chem 7: 08/22/18 05:36 08/22/18 05:36 Laboratory Results - last 24 hr 08/22/18 08/22/18 08/22/18 05:36 05:36 05:36 WBC 5.3 RBC 3.09 L Hgb 8.3 L 8.2 L Hct 24.5 L 25.6 L MCV 82.9 MCH 26.7 L MCHC 32.2 RDW 22.8 H Plt Count 157 MPV 9.0 Sodium 133 L Potassium 3.7 D Chloride 99 Carbon Dioxide 25.7 Anion Gap 8 BUN 6 L Creatinine 0.55 Estimated GFR Greater than 89 Random Glucose 94 Calcium 8.3 L Assessment and Plan - Plan This is a 52-year-old CF with a PMHx of alcohol abuse, Asthma and Chronic right hip pain. Patient presented to the ED s/p fall. Tib-fib XR showed an acute displaced comminuted fracture involving the left proximal tibia, patient is s/p VESTA, POD#1 1. POST OP CARE Managed by Ortho, appreciate assistance s/p Open reduction internal fixation left bicondylar tibial plateau fracture, removal of external fixation on 08/21 s/p ABX x48hrs Continue postoperative care, pain control with Hydrocodone PRN, PT and bowel regimen Per Ortho Reccs 08/22: 1) Left Proximal Tibia Fx s/p ORIF - POD 1 -NWB -no quad sets or leg lifts -PROM 0-90deg -daily dressing changes POD 2 -CKS except for therapy -DVT prophylaxis -CM for DC planning. Home with [facility] vs SNF -f/u with [facility] or [facility] in 2 weeks 2. Microcytic Anemia with Suspected GI bleed, stable Iron studies consistent SUSAN Initial drop in H&H 7.4/22.7-->1U PRBC's-->8.4/25.8, H&H has been stable since transfusion Hgb 8.3 today from 8.3 yesterday Previous concerns for GI bleed secondary to reports of dark stools and overuse of NSAIDs Gastroenterology consulted, appreciate recommendations. Hemoccult stool negative Cont. PPI and Ferrous sulfate 3. Hyponatremia Na 133 from 138 on admission On normal saline at 80 mL/hour Follow-up BMP in AM 4. History of Alcohol Abuse with elevated AST Serum alcohol level on admission 277 [facility] protocol Alcohol cessation encouraged No sign of alcohol withdrawal, will monitor 5. Hypokalemia, resolved Potassium 3.7 today Follow-up BMP in a.m. Mag 1.6 on 08/21 6. Hypertension, no previous hx Likely related to pain, if persistently elevated will consider adding a scheduled antihypertensive Cont. Clonidine PRN 7. DVT prophylaxis: Lovenox per Ortho 8. Disposition: Cont. IP mgmt, Patient is uninsured, however will complete a [id number] to see if a tl consult can be done. This was done per the recommendation of the case management coordinator and discussed at [facility] today. Code Status: full Discussed Condition With: patient, RN, CM
--- NOTE | 2018-08-22 15:27 | P.DCO ---
- Diagnosis (1) Closed bicondylar fracture of left tibial plateau Status: Acute - Physical Therapy Order: Evaluate and treat - Home Health Aide Order: To assist in: Bathing and personal care - Case Management Consult Yes - Certification I have seen patient Ashley Lemus on 08/22/18. My clinical findings support the need for the requested home health care services because: Limited ability to care for self I certify that my clinical findings support that this patient is homebound because: Unsteady gait/balance
[2018-08-23 00:49] VITALS: O2SAT 97
[2018-08-23] MEDS: ceFAZolin 2 GM Premix Inj 2 GM/50 ML PIGGYBACK IV.SIG SCH ×2 (01:43→08:00)
[2018-08-23] MEDS: Sod Chloride 0.9% Inj 1,000 ML IV.CONT SCH ×2 (01:47→08:48)
--- NOTE | 2018-08-23 07:16 | P.PNOP ---
Subjective Interval history: Doing well. Pain is controlled Physical Exam Vital signs: Vital Signs 08/22/18 08:00 08/22/18 12:00 08/22/18 16:00 Temperature 97.9 F 98.1 F 97.3 F L Pulse Rate 75 76 78 Respiratory Rate 18 18 18 Blood Pressure 154/70 H 133/59 L 127/65 Pulse Oximetry 99 100 100 08/22/18 20:00 08/23/18 00:00 Temperature 98.5 F 98.2 F Pulse Rate 88 96 H Respiratory Rate 17 18 Blood Pressure 135/66 117/66 Pulse Oximetry 96 97 Intake & Output 08/22/18 08/23/18 08/23/18 18:59 06:59 18:59 Intake Total 50 / 50 1150 / 1150 Balance 50 / 50 1150 / 1150 Weight 73.2 kg Intake: IV 50 / 50 1150 / 1150 NS Inj 1,000 ML @ 125 mls/hr IV 1000 / 1000 .CONT .Q8H [facility] Rx#:[id number] Ancef 2 GM Premix Inj 2 gm In 50 / 50 100 / 100 50 ml @ 100 mls/hr IV.SIG Q8H [facility] Rx#:[id number] Other: # Voids 4 Date of Last Bowel Movement 08/20/18 08/20/18 Narrative: Right lower extremity: Results - Labs CBC & Chem 7: 08/22/18 05:36 08/22/18 05:36 Laboratory Results - last 24 hr 08/22/18 05:36 Sodium 133 L Potassium 3.7 D Chloride 99 Carbon Dioxide 25.7 Anion Gap 8 BUN 6 L Creatinine 0.55 Estimated GFR Greater than 89 Random Glucose 94 Calcium 8.3 L Assessment and Plan - Assessment and Plan 1) Left Proximal Tibia Fx s/p ORIF - POD 2 -NWB -no quad sets or leg lifts -PROM 0-90deg -daily dressing changes bacitracin over anterior tibia, Xeroform over incisions and pin sites, 4 x 4's and Getachew wrap -CKS except for therapy -DVT prophylaxis -CM for DC planning. Home with [facility] vs SNF. Orthopedically cleared for discharge -f/u with [facility] or [facility] in 2 weeks [facility] Prescription Drug Monitoring Database has been queried and verified prior to prescribing the controlled substance. Acute pain exception. This patient has normal, predicted, physiological, and time limited response to an adverse mechanical stimulus associated with surgery, trauma, or acute illness as described in my notes. There is a lack of alternative treatment options other than to include the prescribed narcotic treatment for this condition.
--- NOTE | 2018-08-23 07:20 | P.DCO ---
- Physical Therapy Physical Therapy: Gait training, Safety evaluation Knee: Knee fracture, Protocol: Left Canvas Knee Splint: Remove only with PT Left Lower Extremity Weight Bearing: Non-weight bearing, No strengthening, No quad sets Left Lower Extremity Range of Motion: Passive ROM - Nursing Dressing changes: Getachew wrap, Xeroform - Certification Need for Home Health services: I have seen patient Ashley Lemus on 08/23/18. My clinical findings support the need for the requested home health care services because: Need for Home Health Services: Limited mobility due to disease progression Homebound Certification: I certify that my clinical findings support that this patient is homebound because: Homebound Certification: Post-op weakness
[2018-08-23 07:29] LABS: Baso # (Auto) 0.1 th/mm3 (0.0-0.2); Baso % (Auto) 1.4 % (0.0-2.0); Eos # (Auto) 0.1 th/mm3 (0.0-0.4); Eos % (Auto) 3.7 % (0.0-4.0); Hematocrit 25.3 % (35.0-46.0); Hemoglobin 8.4 gm/dL (11.6-15.3); Lymph # (Auto) 0.8 th/mm3 (1.0-4.8); Lymph % (Auto) 21.3 % (9.0-44.0); Mean Corpuscular Hemoglobin 27.3 pg (27.0-34.0); Mean Corpuscular Volume 82.5 fL (80.0-100.0); Mean Platelet Volume 9.3 fL (7.0-11.0); Mono # (Auto) 0.5 th/mm3 (0.0-0.9); Mono % (Auto) 13.7 % (0.0-8.0); Neut # (Auto) 2.2 th/mm3 (1.8-7.7); Neut % (Auto) 59.9 % (16.0-70.0); Platelet Count 162 th/mm3 (150-450); Red Blood Count 3.07 mil/mm3 (4.00-5.30); Red Cell Distribution Width 23.5 % (11.6-17.2); White Blood Count 3.7 th/mm3 (4.0-11.0)
[2018-08-23] MEDS: Enoxaparin Inj 30 MG/0.3 ML Syringe SQ SCH (07:40)
[2018-08-23 07:53] LABS: Alanine Aminotransferase 15 U/L (10-53); Albumin 2.2 g/dL (3.4-5.0); Anion Gap 7 meq/L (5-15); Aspartate Aminotransferase 31 U/L (15-37); Blood Urea Nitrogen 5 mg/dL (7-18); Calcium 8.6 mg/dL (8.5-10.1); Carbon Dioxide 28.4 meq/L (21.0-32.0); Chloride 101 meq/L (98-107); Glomerular Filtration Rate Greater Than 89 mL/min (>89); Glucose,Random 88 mg/dL (74-106); Potassium 3.9 meq/L (3.5-5.1); Sodium 136 meq/L (136-145)
[2018-08-23 07:56] LABS: Alkaline Phosphatase 124 U/L (45-117); Total Protein 6.6 g/dL (6.4-8.2)
[2018-08-23] MEDS: Calcium/Vitamin D 250/125 MG Tablet PO SCH ×2 (09:00→12:33)
[2018-08-23] MEDS: Magnesium Oxide 400 MG Tablet PO SCH (09:00)
[2018-08-23] MEDS: Senna/Docusate Sodium 8.6/50 MG Tablet PO SCH (09:00)
[2018-08-23] MEDS: Ferrous Sulfate 325 MG Tablet PO SCH (12:33)
--- NOTE | 2018-08-23 12:44 | P.DS ---
Date of admission: 08/15/18 13:46 Primary care physician: No Primary Care Physician Brief History from admission: This is a 52-year-old female with a history of alcohol abuse, asthma and chronic right hip pain. Patient presents to the emergency department because of acute left leg pain. States she was standing using her cane when she lost her balance and fell. She immediately noticed deformity of her left leg and complained of severe pain "hurts like hell" especially with movement. Tib-fib x -ray independently reviewed by me shows acute displaced comminuted fracture involving the left proximal tibia. Per ER physician, orthopedic surgery recommends transfer to [facility] and obtain lower extremity CT. Patient also has a hematoma in the anterior lateral foreleg. Patient states he cannot tolerate pain medications including Lortab. Morphine gives her dizziness. She denies any symptoms immediately prior to the fall however she has been having intermittent dizziness for the past several weeks. She also noted dark stools and dyspepsia with Prilosec. She also has chronic headaches for which she takes aspirin. She has been evaluated twice in the past including head CT. EKG tracing independently reviewed by me showing sinus tachycardia with poor R wave progression. Chest x-ray image with no acute cardiopulmonary disease. All other systems reviewed negative Patient update on day of discharge: Pain control. Patient wants to go home today. States that she will have some help at home and does have equipment. No other concerns at this time. DS: Diagnosis - Discharge Diagnosis (1) Closed bicondylar fracture of left tibial plateau Status: Acute Diagnosis: Principal (2) Anemia Status: Chronic Diagnosis: Secondary (3) Hypokalemia Status: Resolved Diagnosis: Secondary DS: Medications - Discharge Medications Prescriptions: hydrocodone-acetaminophen [Bone Gap] 1 tab PO Q4H PRN #42 tab PRN Reason: Acute Pain rivaroxaban [Xarelto] 10 mg PO DAILY #14 tab DS: Summary Hospital Course: These are the medical issues addressed during this hospitalization: This is a 52-year-old female with a history of alcohol abuse, asthma and chronic right hip pain. Patient presents to the emergency department because of acute left leg pain s/p fall. Tib-fib x-ray shows acute displaced comminuted fracture involving the left proximal tibia. 1. Acute displaced comminuted left tibial fracture s/p fall. -Patient is status post reduction with external fixation 08/[address] Brian. Status post today ORIF with external fixation removal with Dr. Brian. Continue postoperative care, pain control, physical therapy and bowel regimen. -Calcium/vitamin D supplementation, PT consult nonweightbearing to left lower extremity -Pain control with p.o. Bone Gap, morphine for breakthrough pain. 2. Microcytic anemia with suspected transient GI bleed however repeat Hemoccult has been negative. Iron studies consistent SUSAN -Initial drop in H&H 7.4/22.7-->[place] PRBC's-->8.4/25.8, H&H has been stable since transfusion -Previous concerns for GI bleed secondary to reports of dark stools and overuse of NSAIDs -Gastroenterology consulted, appreciate recommendations. Hemoccult stool negative Hemoglobin has remained stable postoperatively Initially placed on IV Protonix drip and transition p.o. PPI and monitor. 3. History of alcohol abuse with elevated AST -Serum alcohol level on admission 277 -CIWA -Alcohol cessation encouraged No sign of alcohol withdrawal. 4. Hypokalemiareplete 5. Hypertension -Denies past medical history of hypertension -PRN clonidine 6. DVT prophylaxis-Per orthopedic services, subcu Lovenox and transition to Xarelto as an outpatient. - Time Spent with Patient Total time spent providing and/or coordinating discharge services: Less than 30 minutes - Quality: VTE Deep Vein Thrombosis/Pulmonary Embolism Present on Admission: No Exam Vital signs: Vital Signs 08/22/18 16:00 08/22/18 20:00 08/23/18 00:00 Temperature 97.3 F L 98.5 F 98.2 F Pulse Rate 78 88 96 H Respiratory Rate 18 17 18 Blood Pressure 127/65 135/66 117/66 Pulse Oximetry 100 96 97 08/23/18 08:00 Temperature 98.5 F Pulse Rate 85 Respiratory Rate 18 Blood Pressure 139/63 Pulse Oximetry 97 Intake & Output 08/22/18 08/23/18 08/23/18 18:59 06:59 18:59 Intake Total 50 / 50 1150 / 1150 Balance 50 / 50 1150 / 1150 Weight 73.2 kg Intake: IV 50 / 50 1150 / 1150 NS Inj 1,000 ML @ 125 mls/hr IV 1000 / 1000 .CONT .Q8H [facility] Rx#:[id number] Ancef 2 GM Premix Inj 2 gm In 50 / 50 100 / 100 50 ml @ 100 mls/hr IV.SIG Q8H [facility] Rx#:[id number] Other: # Voids 4 Date of Last Bowel Movement 08/20/18 08/20/18 08/23/18 Narrative: GENERAL: This is a well-nourished, well-developed patient, in no apparent distress. CARDIOVASCULAR: Regular rate and rhythm RESPIRATORY: Clear to auscultation. Breath sounds equal bilaterally. No wheezes , rales, or rhonchi. GASTROINTESTINAL: Abdomen soft, non-tender, nondistended. Normal active bowel sounds MUSCULOSKELETAL: Left lower extremity Getachew bandage clean dry intact on NEURO: Alert & Oriented x4 to person, place, time, situation. Moves all ext x4 Results Procedures completed during hospitalization: 08/16 external fixation of the left lower extremity, left by [place]or tibial plateau fracture for stabilization 08/21 open reduction internal fixation left bicondylar tibial plateau fracture , removal of external fixation Labs on day of discharge: Labs from last 24 hours 08/23/18 08/23/18 06:52 06:52 WBC 3.7 L RBC 3.07 L Hgb 8.4 L Hct 25.3 L MCV 82.5 MCH 27.3 MCHC 33.0 RDW 23.5 H Plt Count 162 MPV 9.3 Neut % (Auto) 59.9 Lymph % (Auto) 21.3 Crisp % (Auto) 13.7 H Eos % (Auto) 3.7 Baso % (Auto) 1.4 Neut # (Auto) 2.2 Lymph # (Auto) 0.8 L Crisp # (Auto) 0.5 Eos # (Auto) 0.1 Baso # (Auto) 0.1 WBC Differential . Differential Comment Auto diff final Sodium 136 Potassium 3.9 Chloride 101 Carbon Dioxide 28.4 Anion Gap 7 BUN 5 L Creatinine 0.65 Estimated GFR Greater than 89 Random Glucose 88 Calcium 8.6 Total Bilirubin 0.5 AST 31 ALT 15 Alkaline Phosphatase 124 H Total Protein 6.6 Albumin 2.2 L - Impressions ITS Impressions Chest X-Ray 08/15/18 08:38 CONCLUSION: Negative examination. Lower Extremity CT 08/15/18 12:11 CONCLUSION: 1. Acute comminuted mildly displaced fractures involving the proximal tibia and fibula are noted. The proximal tibial fracture extends to the articular surface in the region of the intercondylar eminence. 2. Moderate-sized suprapatellar knee joint effusion which contains a fat-fluid level. 3. Diffuse osteoporosis involving the bones of the lower leg is noted. Knee CT 08/15/18 12:16 CONCLUSION: 1. Evidence of an acute displaced comminuted fracture involving the left proximal tibial shaft which extends superiorly into the region of the intercondylar tubercle and involves the articular surface. There is also an acute comminuted fracture involving the proximal fibula. 2. Moderate-sized suprapatellar effusion demonstrates a fat-fluid level. 3. Underlying diffuse osteoporosis involving the distal femur, patella, proximal tibia and proximal fibula is noted. Tibia/Fibula X-Ray 08/16/18 00:00 CONCLUSION: Slight improvement of the alignment of the previously noted proximal tibial and fibular fractures with only very slight persistent displacement of the tibial fracture. Knee X-Ray 08/21/18 00:00 CONCLUSION: Limited images as detailed above. Discharge Plan - Discharge Disposition Patient Disposition: /Home Health Service - Discharge Condition Condition: Good - Discharge Order Discharge Orders: Discharge Order (Routine); Ordered 08/23/18 Ordered By: Margy Amador Orthopedic Clear for Discharge (Routine); Ordered 08/23/18 Ordered By: Umer Lobo - Physicians Team Primary Care Provider: Primary Care Qiana,Esperanza Attending Provider: Margy Amador Other Providers: Naima Bernard MD ; Ezekiel Ambrocio MD ; Murphy Brian MD ; [facility]
[2018-08-23 13:08] VITALS: BP 145/70; PULSE 80; RESP 20; TEMP 98.3
== END 2018-08-23 15:54 | disposition home health service (06) ==
LOC: PHED 07:12 → PHEDA 13:46 → N06 18:45
PROVIDERS: ADMIT Family Medicine; ATTEND Family Medicine
PROC: ORIFTIB (2018-08-16 10:13)
PROC: [UNRECOGNIZED PROCEDURE] (2018-08-21 07:42)